=== PATIENT | male | born 1945 | race Two or more races ===

== ENCOUNTER 2017-10-17 12:56 | Observation (INO) | payer MEDICARE ==
--- OUTSIDE RECORDS SUMMARY | 2017-10-17 13:00 | XMS REPORT ---
:1945 External Reference #:[id number] Author Organization [facility] Address [address] [address] Phone [phone] Care Team Providers Name Role Phone Radha Pike MD Primary Care Physician Unavailable Payers Type Date Identification Numbers Payment Subscriber Provider Health Maintenance Effective: Policy Number: Medicare Blue Vern Castellon (O) 09/24/2016 [id number] o Group Number: [id number] [address] [address] PayID: [id number] MIRELLA Sky [id number] Medigap Part B Expires: 10/24/2013 Policy Number: [id number] Medicare Vern Lerner PayID: [id number] [address] [place] [address] Problems Date Description Provider Status Onset: 02/19/2009 Low back pain Charan Byrne M.D. Active Onset: 02/19/2009 Neck pain Charan Byrne M.D. Active Onset: 02/19/2009 Idiopathic peripheral neuropathy Charan Byrne M.D. Active Onset: 03/09/2009 Mononeuritis of lower limb Charan Byrne M.D. 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 Active Onset: 09/30/2014 Bipolar disorder Ramon Motta M.D. Active Onset: 02/11/2015 Hypersomnia with sleep apnea Jay Nathan M.D. Active Family History Date Family Member(s) Problem(s) Comments General MGM of dementia;MGF mental illness, of liver failure General PGF in 60's heart failure;PGM in 80's Onset: (age 31 General niece with thyroid cancer Years) : (age 90 Father due to Dementia Years) Father CHF Father Alzheimer's Disease at age 90 Mother 93 as of 09/29/2014 Mother CAD Mother Macular degeneration Mother Congestive Heart Failure Living at age 95 (CHF) Siblings 3 Siblings Brothers older w/thryroid cancer;younger mental issues Second Brother Celiac Disease Social History Type Date Description Comments Marital Status Single 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[employer] Cigarette Use Light tobacco smoker (10 or 4 ppd for about 10 years, fewer cigarettes/day) then less, current 5-10 cig/day (>50years) ETOH Use Drinks Alcoholic Beverages Occasionally Smoking Light tobacco smoker (10 or fewer cigarettes/day) Recreational Drug Use Former Drug User Marijuana, LSD Amphetamine x 5-10 between the age 20-30 years Daily Caffeine Consumes on average 5-10 cups of regular coffee per day Exercise Type/Frequency Does not exercise Allergies, Adverse Reactions, Alerts Date Description Reaction Status Severity Comments 03/14/2013 Lamotrigine active Medications Medication Date Status Form Strength Qnty SIG Indications Ordering Provider Atorvastatin 02/08/ Active Tablets 10mg 90tabs 1 by mouth Radha Calcium 2015 every day Jose Pike Elbow 11/09/ Active Misc 1units with elbow M70.21 [place] Support/Elasti 2015 protective BRITTA Nguyen c/Firm/Large padding. Aspirin Ec / Active Tablets DR 325mg 1 po qd Unknown 0000 Multi Vitamin / Active Tablets 1 po qd Unknown Mens 0000 Trazodone HCL / Active Tablets 100mg 15tabs 1/2 tablet Radha 0000 by mouth Shahzad, every night MShelleyDShelley at bedtime Areds 2 / Active 2 daily Unknown 0000 Nac / Active Capsules 600mg 1 tab po qd Unknown 0000 Keflex 05/18/ Hx Capsules 500mg 21caps 1 by mouth L02.224 [place] 2015 - three times BRITTA Nguyen 05/24/ a day for 2015 7days Vitamin C 02/10/ Hx 1 by mouth Unknown 2014 - every day 2014 Fish Oil 02/10/ Hx Capsules 1 by mouth Unknown 2014 - every day 2014 Vitamin D3 02/10/ Hx 1 every day Unknown 2014 - by mouth 2015 Propranolol 03/14/ Hx Tablets 10mg 60tabs 1 tablet by Jenifer SHEPPARD 2012 - mouth 1-2 [place], 09/28/ times per M.D. 2014 day Paroxetine HCL /00/ Hx Tablets 20mg 1 po qhs Unknown 0000 - 2014 Macdona 00/00/ Hx Capsules 300mg 1 tab po in Unknown Carbonate 0000 - moring/2 at 09/28/ bedtime 2014 Trazodone HCL 00/00/ Hx Tablets 100mg 1 tablet Unknown 0000 - at bedtime 2015 Morenci-3 00/00/ Hx Capsules 1000mg 1 po qd. Unknown 0000 - 2015 Vitamin B6 00/00/ Hx Tablets 250mg Unknown 0000 - 2014 Lutein Vision /00/ Hx Capsules 2 by mouth Unknown Blend 0000 - twice a day 2015 Harvoni 00/00/ Hx Tablets 90-400mg 1 by mouth Unknown 0000 - every day 2015 Latuda 00/00/ Hx Tablets 30mg 1 by mouth Unknown 0000 - every day 2015 Preservision 00/00/ Hx Tablets 1 capsule Unknown Areds 0000 - twice a day 05/13/ w/food 2015 Latuda 00/00/ Hx Tablets 20mg 1 po qd Unknown 0000 - 2016 Macdona 00/00/ Hx Capsules 300mg 2 caps by Unknown Carbonate 0000 - mouth @ 05/11/ bedtime 2015 Vitamin D-3 /00/ Hx Capsules 2000Unit 1 by mouth Unknown 0000 - every day 2016 Zinc 00/00/ Hx Tablets 22mg po qd Unknown Picolinate 0000 - 2016 Vitamin B12 00/00/ Hx Tablets ER 1000mcg 2 by mouth Unknown 0000 - every day 2016 Nac 600 /00/ Hx Capsules 600mg 1 po qd Unknown 0000 - 2016 Immunizations CPT Code Status Date Vaccine Reaction Lot # [id number] Given 02/16/2017 Pneumonia Vaccine no immediate noted. [id number] Given 07/09/2015 Fluvirin Im 3Yrs And Older Q2037 Given 02/11/2015 Fluvirin Im 3Yrs And Older Vital Signs Date Vital Result Comment 10/17/2017 Height 70.5 inches 5'10.50" Weight 257.00 lb Heart Rate 66 /min BP Systolic Sitting 118 mmHg BP Diastolic Sitting 72 mmHg Respiratory Rate 16 /min BMI (Body Mass Index) 36.4 kg/m2 10/15/2017 Height 61 inches 5'1" Weight 261.50 lb Heart Rate 61 /min BP Systolic 110 mmHg BP Diastolic 64 mmHg Body Temperature 97.2 F O2 % BldC Oximetry 96 % BMI (Body Mass Index) 49.4 kg/m2 04/05/2017 Heart Rate 68 /min BP Systolic Sitting 128 mmHg BP Diastolic Sitting 62 mmHg O2 % BldC Oximetry 98 % 02/16/2017 Height 69 inches 5'9" Weight 252.00 lb Heart Rate 54 /min BP Systolic Sitting 122 mmHg BP Diastolic Sitting 72 mmHg Respiratory Rate 15 /min Body Temperature 98.0 F O2 % BldC Oximetry 98 % BMI (Body Mass Index) 37.2 kg/m2 01/30/2017 Weight 252.25 lb Heart Rate 62 /min BP Systolic Sitting 110 mmHg BP Diastolic Sitting 70 mmHg Respiratory Rate 16 /min Body Temperature 97.3 F O2 % BldC Oximetry 97 % 05/19/2016 Weight 230.75 lb Heart Rate 68 /min BP Systolic Sitting 131 mmHg BP Diastolic Sitting 78 mmHg O2 % BldC Oximetry 99 % 05/18/2016 Weight 231.00 lb Heart Rate 66 /min BP Systolic 120 mmHg BP Diastolic 70 mmHg Body Temperature 97.7 F O2 % BldC Oximetry 99 % 05/11/2016 Weight 230.00 lb Heart Rate 68 /min BP Systolic Sitting 128 mmHg BP Diastolic Sitting 82 mmHg Respiratory Rate 15 /min Body Temperature 97.8 F O2 % BldC Oximetry 98 % 02/08/2016 Height 69 inches 5'9" Weight 251.00 lb Heart Rate 54 /min BP Systolic Sitting 128 mmHg BP Diastolic Sitting 84 mmHg Respiratory Rate 15 /min O2 % BldC Oximetry 98 % BMI (Body Mass Index) 37.1 kg/m2 01/11/2016 Height 69 inches 5'9" Weight 259.00 lb Heart Rate 70 /min BP Systolic Sitting 110 mmHg BP Diastolic Sitting 78 mmHg Body Temperature 96.0 F BMI (Body Mass Index) 38.2 kg/m2 12/27/2015 Height 69 inches 5'9" Weight 265.00 lb Heart Rate 80 /min BP Systolic Sitting 118 mmHg BP Diastolic Sitting 78 mmHg Body Temperature 97.7 F Pain Level 6 feet O2 % BldC Oximetry 98 % BMI (Body Mass Index) 39.1 kg/m2 11/09/2015 Weight 270.75 lb Heart Rate 75 /min BP Systolic Sitting 122 mmHg BP Diastolic Sitting 80 mmHg Body Temperature 96.8 F O2 % BldC Oximetry 95 % 02/11/2015 Height 71 inches 5'11" Weight 270.38 lb Heart Rate 75 /min BP Systolic Sitting 118 mmHg BP Diastolic Sitting 68 mmHg Respiratory Rate 20 /min Body Temperature 97.4 F O2 % BldC Oximetry 98 % BMI (Body Mass Index) 37.7 kg/m2 Neck Circumference in inches 17.25 01/06/2015 Weight 267.00 lb Heart Rate 70 /min BP Systolic Sitting 106 mmHg BP Diastolic Sitting 62 mmHg Body Temperature 96.9 F 09/29/2014 Height 71 inches 5'11" Weight 254.25 lb Heart Rate 72 /min BP Systolic Sitting 127 mmHg BP Diastolic Sitting 72 mmHg Body Temperature 98.4 F O2 % BldC Oximetry 98 % BMI (Body Mass Index) 35.5 kg/m2 03/14/2013 Height 71 inches 5'11" Weight 270.00 lb Heart Rate 64 /min BP Systolic 120 mmHg BP Diastolic 82 mmHg Respiratory Rate 12 /min BMI (Body Mass Index) 37.7 kg/m2 03/09/2009 Weight 243.00 lb Heart Rate 56 /min BP Systolic Sitting 98 mmHg BP Diastolic Sitting 64 mmHg 02/19/2009 Height 70.50 inches 5'10.50" Weight 242.50 lb Heart Rate 69 /min BP Systolic Sitting 104 mmHg BP Diastolic Sitting 70 mmHg Body Temperature 97.9 F O2 % BldC Oximetry 98 % BMI (Body Mass Index) 34.3 kg/m2 Results Test Date Test Result H/L Range Note Laboratory test 04/24/2017 Blood Urea Nitrogen 18 mg/dL 6-24 finding BUN Creatinine 04/24/2017 Creatinine 1.11 mg/dL 0.67-1.17 Egfr Non- 65.5 >60 Egfr 84.2 >60 1 CBC Auto Diff 03/22/2017 White Blood Count 7.8 10^3/uL 3.5-10.8 Red Blood Count 4.76 10^6/uL 4.0-5.4 Hemoglobin 14.5 g/dL 14.0-18.0 Hematocrit 43 % 42-52 Mean Corpuscular Volume 91 fL 80-94 Mean Corpuscular Hemoglobin 30 pg 27-31 Mean Corpuscular HGB Conc 34 g/dL 31-36 Red Cell Distribution Width 14 % 10.5-15 Platelet Count 136 10^3/uL Low 150-450 Mean Platelet Volume 10 um3 7.4-10.4 Abs Neutrophils 3.3 10^3/uL 1.5-7.7 Abs Lymphocytes 3.4 10^3/uL 1.0-4.8 Abs Monocytes 0.8 10^3/uL 0-0.8 Abs Eosinophils 0.2 10^3/uL 0-0.6 Abs Basophils 0.1 10^3/uL 0-0.2 Abs Nucleated RBC 0 10^3/uL Granulocyte % 42.3 % 38-83 Lymphocyte % 43.3 % 25-47 Monocyte % 10.7 % High 1-9 Eosinophil % 2.4 % 0-6 Basophil % 1.3 % 0-2 Nucleated Red Blood Cells % 0 Comp Metabolic Panel 02/07/2017 Sodium 136 mmol/L 133-145 Potassium 4.4 mmol/L 3.5-5.0 Chloride 105 mmol/L 101-111 Co2 Carbon Dioxide 25 mmol/L 22-32 Anion Gap 6 mmol/L 2-11 Glucose 93 mg/dL 70-100 Blood Urea Nitrogen 18 mg/dL 6-24 Creatinine 1.01 mg/dL 0.67-1.17 BUN/Creatinine Ratio 17.8 8-20 Calcium 9.3 mg/dL 8.6-10.3 Total Protein 7.2 g/dL 6.4-8.9 Albumin 4.1 g/dL 3.2-5.2 Globulin 3.1 g/dL 2-4 Albumin/Globulin Ratio 1.3 1-3 Total Bilirubin 0.60 mg/dL 0.2-1.0 Alkaline Phosphatase 54 U/L 34-104 Alt 11 U/L 7-52 Ast 14 U/L 13-39 Egfr Non- 73.0 >60 Egfr 93.9 >60 2 CBC Auto Diff 02/07/2017 White Blood Count 6.3 10^3/uL 3.5-10.8 Red Blood Count 5.01 10^6/uL 4.0-5.4 Hemoglobin 14.7 g/dL 14.0-18.0 Hematocrit 44 % 42-52 Mean Corpuscular Volume 88 fL 80-94 Mean Corpuscular Hemoglobin 29 pg 27-31 Mean Corpuscular HGB Conc 33 g/dL 31-36 Red Cell Distribution Width 14 % 10.5-15 Platelet Count 138 10^3/uL Low 150-450 Mean Platelet Volume 10 um3 7.4-10.4 Abs Neutrophils 3.0 10^3/uL 1.5-7.7 Abs Lymphocytes 2.5 10^3/uL 1.0-4.8 Abs Monocytes 0.6 10^3/uL 0-0.8 Abs Eosinophils 0.2 10^3/uL 0-0.6 Abs Basophils 0.1 10^3/uL 0-0.2 Abs Nucleated RBC 0 10^3/uL Granulocyte % 47.3 % 38-83 Lymphocyte % 39.4 % 25-47 Monocyte % 9.0 % 1-9 Eosinophil % 3.1 % 0-6 Basophil % 1.2 % 0-2 Nucleated Red Blood Cells % 0.1 Comp Metabolic Panel 01/31/2017 Sodium 137 mmol/L 133-145 Potassium 4.2 mmol/L 3.5-5.0 Chloride 106 mmol/L 101-111 Co2 Carbon Dioxide 26 mmol/L 22-32 Anion Gap 5 mmol/L 2-11 Glucose 89 mg/dL 70-100 Blood Urea Nitrogen 24 mg/dL 6-24 Creatinine 0.95 mg/dL 0.67-1.17 BUN/Creatinine Ratio 25.3 High 8-20 Calcium 9.3 mg/dL 8.6-10.3 Total Protein 6.9 g/dL 6.4-8.9 Albumin 3.9 g/dL 3.2-5.2 Globulin 3.0 g/dL 2-4 Albumin/Globulin Ratio 1.3 1-3 Total Bilirubin 0.70 mg/dL 0.2-1.0 Alkaline Phosphatase 55 U/L 34-104 Alt 11 U/L 7-52 Ast 14 U/L 13-39 Egfr Non- 78.4 >60 Egfr 100.8 >60 3 CBC Auto Diff 01/31/2017 White Blood Count 7.6 10^3/uL 3.5-10.8 Red Blood Count 4.98 10^6/uL 4.0-5.4 Hemoglobin 14.5 g/dL 14.0-18.0 Hematocrit 44 % 42-52 Mean Corpuscular Volume 88 fL 80-94 Mean Corpuscular Hemoglobin 29 pg 27-31 Mean Corpuscular HGB Conc 33 g/dL 31-36 Red Cell Distribution Width 14 % 10.5-15 Platelet Count 135 10^3/uL Low 150-450 Mean Platelet Volume 10 um3 7.4-10.4 Abs Neutrophils 3.0 10^3/uL 1.5-7.7 Abs Lymphocytes 3.5 10^3/uL 1.0-4.8 Abs Monocytes 0.7 10^3/uL 0-0.8 Abs Eosinophils 0.2 10^3/uL 0-0.6 Abs Basophils 0.1 10^3/uL 0-0.2 Abs Nucleated RBC 0 10^3/uL Granulocyte % 39.6 % 38-83 Lymphocyte % 46.5 % 25-47 Monocyte % 9.8 % High 1-9 Eosinophil % 3.0 % 0-6 Basophil % 1.1 % 0-2 Nucleated Red Blood Cells % 0 Lipid Profile (Trig/Chol/HDL) 11/03/2016 Triglycerides 90 mg/dL 4, 5 Cholesterol 137 mg/dL 4, 6 HDL Cholesterol 33.2 mg/dL 4, 7 LDL Cholesterol 86 mg/dL 4, 8 Laboratory test finding 11/03/2016 Glucose 93 mg/dL 70-100 4, 9 Folic Acid (Folate) > 20.00 ng/mL >3.99 4, 10 Vitamin B12 233 pg/mL 180-914 4, 11 Vitamin D Total 25(Oh) 34.9 ng/mL 30-50 4, 12 Hemoglobin A1c (Glyco HGB) 5.4 % Less than 6.0 4, 13 Copper, Serum 1.09 g/mL 0.75-1.45 4, 14 Zinc Serum 0.72 g/mL 0.66-1.10 4, 15 Reference Lab Test See Comment 4, 16 Ceruloplasmin 24 mg/dL 18-36 4, 17 Istat BUN/Crea/Egfr/V Eastct 02/14/2016 Poc Bun Eastct 11 mg/dL 9-18 Poc Crea Eastct 1.0 mg/dL High 0.6-0.9 GFR Non- Ect 74.1 >60 GFR Eastpr 95.3 >60 18 Lipid Profile (Trig/Chol/HDL) 02/09/2016 Triglycerides 129 mg/dL 19 Cholesterol 176 mg/dL 20 HDL Cholesterol 24.4 mg/dL 21 LDL Cholesterol 126 mg/dL 22 Comp Metabolic Panel 12/29/2015 Sodium 135 mmol/L 133-145 Potassium 4.4 mmol/L 3.5-5.0 Chloride 103 mmol/L 101-111 Co2 Carbon Dioxide 25 mmol/L 22-32 Anion Gap 7 mmol/L 2-11 Glucose 88 mg/dL 70-100 Blood Urea Nitrogen 11 mg/dL 6-24 Creatinine 1.00 mg/dL 0.67-1.17 BUN/Creatinine Ratio 11.0 8-20 Calcium 9.7 mg/dL 8.6-10.3 Total Protein 7.4 g/dL 6.4-8.9 Albumin 4.0 g/dL 3.2-5.2 Globulin 3.4 g/dL 2-4 Albumin/Globulin Ratio 1.2 1-3 Total Bilirubin 0.80 mg/dL 0.2-1.0 Alkaline Phosphatase 54 U/L 34-104 Alt 15 U/L 7-52 Ast 18 U/L 13-39 Egfr Non- 74.1 >60 Egfr 95.3 >60 23 CBC Auto Diff 12/29/2015 White Blood Count 7.8 10^3/uL 3.5-10.8 Red Blood Count 5.03 10^6/uL 4.0-5.4 Hemoglobin 15.0 g/dL 14.0-18.0 Hematocrit 45 % 42-52 Mean Corpuscular Volume 90 fL 80-94 Mean Corpuscular Hemoglobin 30 pg 27-31 Mean Corpuscular HGB Conc 33 g/dL 31-36 Red Cell Distribution Width 14 % 10.5-15 Platelet Count 156 10^3/uL 150-450 Mean Platelet Volume 10 um3 7.4-10.4 Abs Neutrophils 4.1 10^3/uL 1.5-7.7 Abs Lymphocytes 2.7 10^3/uL 1.0-4.8 Abs Monocytes 0.8 10^3/uL 0-0.8 Abs Eosinophils 0.1 10^3/uL 0-0.6 Abs Basophils 0.1 10^3/uL 0-0.2 Abs Nucleated RBC 0 10^3/uL Granulocyte % 52.0 % 38-83 Lymphocyte % 34.8 % 25-47 Monocyte % 10.8 % High 1-9 Eosinophil % 1.5 % 0-6 Basophil % 0.9 % 0-2 Nucleated Red Blood Cells % 0 Laboratory test finding 12/29/2015 Afp Tumor Marker 3.1 ng/mL <6.0 24 Alpha 1 Antitrypsin A1a 151 mg/dL 100 - 190 25 Comp Metabolic Panel 01/07/2015 Sodium 135 mmol/L 133-145 Potassium 4.5 mmol/L 3.5-5.0 Chloride 105 mmol/L 101-111 Co2 Carbon Dioxide 27 mmol/L 22-32 Anion Gap 3 mmol/L 2-11 Glucose 110 mg/dL High 70-100 Blood Urea Nitrogen 18 mg/dL 6-24 Creatinine 0.85 mg/dL 0.67-1.17 BUN/Creatinine Ratio 21.2 High 8-20 Calcium 9.1 mg/dL 8.6-10.3 Total Protein 7.1 g/dL 6.4-8.9 Albumin 3.8 g/dL 3.2-5.2 Globulin 3.3 g/dL 2-4 Albumin/Globulin Ratio 1.2 1-3 Total Bilirubin 0.40 mg/dL 0.2-1.0 Alkaline Phosphatase 55 U/L 34-104 Alt 42 U/L 7-52 Ast 36 U/L 13-39 Egfr Non- 89.6 >60 Egfr 115.3 >60 26 Laboratory test finding 01/07/2015 B Type Natriuretic 71 pg/mL 27 Peptide CBC Auto Diff 01/07/2015 White Blood Count 6.8 10^3/uL 4.8-10.8 Red Blood Count 4.74 10^6/uL 4.0-5.4 Hemoglobin 13.9 g/dL Low 14.0-18.0 Hematocrit 42 % 42-52 Mean Corpuscular Volume 89 fL 80-94 Mean Corpuscular Hemoglobin 29 pg 27-31 Mean Corpuscular HGB Conc 33 g/dL 31-36 Red Cell Distribution Width 15 % 10.5-15 Platelet Count 154 10^3/uL 150-450 Mean Platelet Volume 10 um3 7.4-10.4 Abs Neutrophils 3.0 10^3/uL 1.5-7.7 Abs Lymphocytes 2.7 10^3/uL 1.0-4.8 Abs Monocytes 0.9 10^3/uL High 0-0.8 Abs Eosinophils 0.2 10^3/uL 0-0.6 Abs Basophils 0.1 10^3/uL 0-0.2 Abs Nucleated RBC 0 10^3/uL Granulocyte % 44.3 % 38-83 Lymphocyte % 39.2 % 25-47 Monocyte % 12.5 % High 1-9 Eosinophil % 2.7 % 0-6 Basophil % 1.3 % 0-2 Nucleated Red Blood Cells % 0 Urinalysis Profile 01/07/2015 Urine Color Yellow Urine Appearance Clear Urine Specific [place] 1.010 1.010-1.030 Urine pH 5.0 5-9 Urine Urobilinogen Negative Negative Urine Ketones Negative Negative Urine Protein Negative Negative Urine Leukocytes Negative Negative Urine Blood Negative Negative Urine Nitrite Negative Negative Urine Bilirubin Negative Negative Urine Glucose Negative Negative Laboratory test finding 01/07/2015 TSH (Thyroid Stimulating 0.95 IU/mL 0.34-5.60 Horm) Lyme Disease Serology Negative Negative 28 1 Because ethnic data is not always readily available, this report includes an eGFR for both -Americans and non- Americans. The National Kidney Disease Education Program (NKDEP) does not endorse the use of the MDRD equation for patients that are not between the ages of 18 and 70, are , have extremes of body size, muscle mass, or nutritional status, or are non- or non-. According to the National Kidney Foundation, irrespective of diagnosis, the stage of the disease is based on the level of kidney function: Stage Description GFR(mL/min/1.73 m(2)) 1 Kidney damage with normal or decreased GFR 90 2 Kidney damage with mild decrease in GFR 60-89 3 Moderate decrease in GFR 30-59 4 Severe decrease in GFR 15-29 5 Kidney failure <15 (or dialysis) 2 Because ethnic data is not always readily available, this report includes an eGFR for both -Americans and non- Americans. The National Kidney Disease Education Program (NKDEP) does not endorse the use of the MDRD equation for patients that are not between the ages of 18 and 70, are , have extremes of body size, muscle mass, or nutritional status, or are non- or non-. According to the National Kidney Foundation, irrespective of diagnosis, the stage of the disease is based on the level of kidney function: Stage Description GFR(mL/min/1.73 m(2)) 1 Kidney damage with normal or decreased GFR 90 2 Kidney damage with mild decrease in GFR 60-89 3 Moderate decrease in GFR 30-59 4 Severe decrease in GFR 15-29 5 Kidney failure <15 (or dialysis) 3 Because ethnic data is not always readily available, this report includes an eGFR for both -Americans and non- Americans. The National Kidney Disease Education Program (NKDEP) does not endorse the use of the MDRD equation for patients that are not between the ages of 18 and 70, are , have extremes of body size, muscle mass, or nutritional status, or are non- or non-. According to the National Kidney Foundation, irrespective of diagnosis, the stage of the disease is based on the level of kidney function: Stage Description GFR(mL/min/1.73 m(2)) 1 Kidney damage with normal or decreased GFR 90 2 Kidney damage with mild decrease in GFR 60-89 3 Moderate decrease in GFR 30-59 4 Severe decrease in GFR 15-29 5 Kidney failure <15 (or dialysis) 4 FASTING 5 Desirable <150 Borderline high 150-199 High 200-499 Very High >500 6 Desirable <200 Borderline high 200-239 High >239 7 Low <40 Desirable: 40-60 High: >60 8 Desirable: <100 mg/dL Near Optimal: 100-129 mg/dL Borderline High: 130-159 mg/dL High: 160-189 mg/dL Very High: >189 mg/dL 9 FASTING 10 FASTING 11 Normal Range 180 to 914 Indeterminate Range 145 to 180 Deficient Range <145 12 FASTING 13 Therapeutic target for the treatment of diabetes Mellitus patients is <7% HBA1C, and in selective patients <6.0%.Please refer to [place] [employer] Association Diabetic care guidelines for further information. 14 ADDITIONAL INFORMATION This test was developed and its performance characteristics determined by [facility] in a manner consistent with CLIA requirements. This test has not been cleared or approved by the U.S. Food and Drug Administration. Test Performed by: [facility] - [address] [address] General Freight Agent: Norris Marsh II, M.D., Ph.D. 15 ADDITIONAL INFORMATION This test was developed and its performance characteristics determined by [facility] in a manner consistent with CLIA requirements. This test has not been cleared or approved by the U.S. Food and Drug Administration. Test Performed by: [facility] - [address] [address] General Freight Agent: Norris Marsh II, M.D., Ph.D. 16 Test Result Flag Unit RefValue Histamine, Whole Blood 1226 nmol/L 180-1800 INTERPRETIVE INFORMATION: Histamine, Whole Blood Test developed and characteristics determined by [facility]. See Compliance Statement D: [facility] [employer]/ Performed by [facility], [address] [place] [id number] [email or web address] [employer], Wing Coy MD - Lab. Director Test Performed by: [facility] [address] [place] [id number] 17 Adults: Males: 18-36 mg/dL Females: 18-53 mg/dL Pediatrics: Males (mg/dL) Females (mg/dL) 0-30 Days 8-25 3-28 31 Days-11 Month 15-48 15-43 1-3 Years 25-56 29-54 4-6 Years 29-56 26-54 7-9 Years 25-52 23-48 10-12 Years 21-51 21-48 13-15 Years 20-50 21-46 16-18 Years 20-45 22-50 The pediatric ranges are derived from the following criteria: Sandy SJ, Ch[place] GRANT, Mae J et al Pediatric reference ranges for [id number] and ceruloplasmin. Clin. Chem 1997; 43:S1999 Pediatric Reference Ranges, 2nd., SF Sandyet al. editors. [employer], [place], [place] 1997. Test Performed at: [facility], [address] [place] [id number] B Cheri ADLER, FCAP Test Performed by: [employer] [facility] [place] [address] [place] [address] 18 Because ethnic data is not always readily available, this report includes an eGFR for both -Americans and non- Americans. The National Kidney Disease Education Program (NKDEP) does not endorse the use of the MDRD equation for patients that are not between the ages of 18 and 70, are , have extremes of body size, muscle mass, or nutritional status, or are non- or non-. According to the National Kidney Foundation, irrespective of diagnosis, the stage of the disease is based on the level of kidney function: Stage Description GFR(mL/min/1.73 m(2)) 1 Kidney damage with normal or decreased GFR 90 2 Kidney damage with mild decrease in GFR 60-89 3 Moderate decrease in GFR 30-59 4 Severe decrease in GFR 15-29 5 Kidney failure <15 (or dialysis) 19 Desirable <150 Borderline high 150-199 High 200-499 Very High >500 20 Desirable <200 Borderline high 200-239 High >239 21 Low <40 Desirable: 40-60 High: >60 22 Desirable: <100 mg/dL Near Optimal: 100-129 mg/dL Borderline High: 130-159 mg/dL High: 160-189 mg/dL Very High: >189 mg/dL 23 Because ethnic data is not always readily available, this report includes an eGFR for both -Americans and non- Americans. The National Kidney Disease Education Program (NKDEP) does not endorse the use of the MDRD equation for patients that are not between the ages of 18 and 70, are , have extremes of body size, muscle mass, or nutritional status, or are non- or non-. According to the National Kidney Foundation, irrespective of diagnosis, the stage of the disease is based on the level of kidney function: Stage Description GFR(mL/min/1.73 m(2)) 1 Kidney damage with normal or decreased GFR 90 2 Kidney damage with mild decrease in GFR 60-89 3 Moderate decrease in GFR 30-59 4 Severe decrease in GFR 15-29 5 Kidney failure <15 (or dialysis) 24 ADDITIONAL INFORMATION The testing method is an immunoenzymatic assay manufactured by [employer]. and performed on the [employer] DxI 800. Values obtained with different assay methods or kits may be different and cannot be used interchangeably. Test results cannot be interpreted as absolute evidence for the presence or absence of malignant disease. Alpha-Fetoprotein values are not interpretable in females for the investigation of malignant disease. Test Performed by: [place] [address] General Freight Agent: Norris Marsh II, M.D., Ph.D. 25 Test Performed by: [place] [address] General Freight Agent: Norris Marsh II, M.D., Ph.D. 26 Because ethnic data is not always readily available, this report includes an eGFR for both -Americans and non- Americans. The National Kidney Disease Education Program (NKDEP) does not endorse the use of the MDRD equation for patients that are not between the ages of 18 and 70, are , have extremes of body size, muscle mass, or nutritional status, or are non- or non-. According to the National Kidney Foundation, irrespective of diagnosis, the stage of the disease is based on the level of kidney function: Stage Description GFR(mL/min/1.73 m(2)) 1 Kidney damage with normal or decreased GFR 90 2 Kidney damage with mild decrease in GFR 60-89 3 Moderate decrease in GFR 30-59 4 Severe decrease in GFR 15-29 5 Kidney failure <15 (or dialysis) 27 >100 to <200 pg/mL: likely compensated congestive heart failure (CHF) 200 to 400 pg/mL: likely moderate CHF >400 pg/mL: likely moderate to severe CHF [place] [facility] 28 Serologic response to B. burgdorferi infection is not detected, but cannot rule out early infection during which low or undetectable antibody levels to B. burgdorferi may be present. If clinically indicated, a new serum specimen should be submitted in 7-14 days. Test Performed by: [place] [address] General Freight Agent: Norris Marsh II, M.D., Ph.D. Procedures Date CPT Code Description Status Comment 02/01/2017 69025 Dest Lesion Each Addl Lesion 2 Completed Through 14 Each 02/01/2017 38527 Destruction ALL Benign Or Completed Premalignant Lesion (Other Than [place] 02/03/2016 22411 Polysomnography Sleep Staging 4+ Completed Parameters 02/02/2016 57970 EKG, Interpretation Only Completed 06/24/2013 Colonoscopy Completed Normal - done at the [facility] 02/04/2013 88588 Nerve Conduction 07-08 Studies Completed Encounters Type Date Location Provider CPT E/M Dx Office Visit 04/05/2017 [facility] Radha Pike 79192 I71.2 7:40a - Effie Garcia D69.6 G47.9 M54.2 Office Visit 02/16/2017 4:00p [facility] Radha Pike 34929 Z00.00 - Effie Garcia R91.8 E78.5 D69.6 F33.9 Z23 Office Visit 02/01/2017 10:40a [facility] [place] [address] L82.1 D18.01 I83.12 I83.11 L57.0 Office Visit 01/30/2017 4:20p [facility] Radha Pike 98632 I73.9 - Effie Garcia R63.5 Office Visit 05/19/2016 1:40p [facility] [place] [address] R04.0 [facility] Office Visit 05/18/2016 9:00a [facility] [place] [address] L02.224 Medicine - Effie Office Visit 05/11/2016 1:00p [facility] Radha Pike 14056 E78.5 [facility] - Effie Garcia B18.2 K59.00 Office Visit 02/08/2016 1:00p [facility] Radha Pike 54775 E78.5 - Effie Garcia J44.9 G47.9 Office Visit 01/11/2016 9:50a [facility] Asmita Shaikh, 92143 R13.12 - Effie Garcia Z80.8 Office Visit 11/09/2015 8:40a [facility] [place] [address] M70.21 [place] D48.5 M79.671 M79.672 H54.2 M70.22 Office Visit 02/11/2015 8:15a [facility] Jay Nathan, 43435 780.53 [facility] Office Visit 01/06/2015 2:30p [facility] [place] [address] 782.3 [place] 780.59 780.79 Office Visit 03/14/2013 9:00a [facility] Jenifer Matthews, 24091 333.1 [facility] Plan of Care Future Appointment(s):10/18/2017 11:30 am - Im Nurse Holter Monitor at [facility]02/25/2018 10:40 am - Radha Pike M.D. at [facility] Medicine [facility]10/17/2017 - Scott Guevara M.D.G46.3 Brain stem stroke syndromeFollow up:direct admit to [facility]
[2017-10-17] MEDS ORDERED: Acetaminophen TAB* 325 MG PO PRN (13:15)
[2017-10-17] MEDS ORDERED: NS 0.9% 1000 ML* 1,000 ML IV ONE (13:15)
[2017-10-17] MEDS ORDERED: traZODone TAB* 50 MG TAB PO PRN (13:59)
[2017-10-17] MEDS: Aspirin Low Dose CHEW TAB* 81 MG PO SCH (14:02)
[2017-10-17] MEDS: Heparin VIAL(*) 5000 UNITS/ML VIAL (FIVE THOUSAND) SUBCUT SCH ×2 (15:01→20:59)
[2017-10-17] MEDS: Clopidogrel TAB* 75 MG PO SCH (15:01)
--- NOTE | 2017-10-17 16:39 | ECHO ---
Patient: SUZAN ARIAS [facility] Rec#: [id number] : 1945 Date: 10/17/2017 Age: 72y Height: 177.8 cm / 70.0 in Weight: 118.4 kg / 261.0 lbs Sex: M BSA: 2.34 Room#: [facility] Admit Date#: 10/17/2017 Type: Inpatient Referring: Johanne Sanz MD Reading: Reina Manning MD Filer Repairer: Raegan Zapien RN RDCS CC: Radha Pike MD Transthoracic Echocardiogram Indication: CVA BP: 134/71 HR: 63 Rhythm: NSR Findings History: Thoracic aortic ectasia, abdominal aorta and iliac artery stenting, venous bypass left leg, smoker, obesity, Hepatitis C Technical Comments: The study is technically limited due to patient body habitus. The study is technically limited due to the patient's smoking history. Left Ventricle: The left ventricular chamber size is normal. Mild to moderate concentric left ventricular hypertrophy is observed. Global left ventricular wall motion and contractility are within normal limits. Left ventricular systolic function is at the lower limits of normal. The estimated ejection fraction is 50-55%. Abnormal left ventricular diastolic filling is observed, consistent with impaired relaxation. Left Atrium: The left atrium is mildly dilated. Right Ventricle: The right ventricular cavity size is normal. The right ventricular global systolic function is low normal. Right Atrium: The right atrium is mild to moderately dilated. The bubble study is negative. A patent foramen ovale is not demonstrated with color Doppler and agitated contrast. Aortic Valve: The aortic valve is trileaflet. The aortic valve leaflets are mildly thickened. There is moderate thickening of the left coronary cusp. There is moderate thickening of the non coronary cusp. Systolic excursion of the non coronary cusp is reduced. Systolic excursion of the left coronary cusp is reduced. There is mild to moderate aortic regurgitation. There is mild aortic stenosis. The mean gradient of the aortic valve is 7.6 mmHg. The aortic valve area, by VTI's, is calculated at 1.6 cm2. Mitral Valve: The mitral valve leaflets are mildly thickened. There is mild to moderate mitral regurgitation. The mitral regurgitant jet is laterally directed. There is no evidence of mitral stenosis. Tricuspid Valve: The tricuspid valve leaflets are normal. There is trace to mild tricuspid regurgitation. No pulmonary hypertension is noted. There is no tricuspid stenosis. Pulmonic Valve: The pulmonic valve appears normal. There is a trace pulmonic regurgitation. There is no pulmonic stenosis. Pericardium: There is no significant pericardial effusion. A pericardial fat pad is visualized. Aorta: There is moderate dilatation of the ascending aorta. There is no dilatation of the aortic arch. There is mild dilatation of the aortic root. Pulmonary Artery: The main pulmonary artery appears normal. Venous: The inferior vena cava appears normal in size. There is a greater than 50% respiratory change in the inferior vena cava dimension. Contrast: Normal saline was used as contrast for the bubble study. Images 1 and 2. Conclusions Mild to moderate concentric left ventricular hypertrophy is observed. Global left ventricular wall motion and contractility are within normal limits. The estimated ejection fraction is 50-55%. Abnormal left ventricular diastolic filling is observed, consistent with impaired relaxation. Normal right ventricular systolic function. A patent foramen ovale is not demonstrated with color Doppler and agitated contrast. The aortic valve leaflets are mildly thickened. There is mild to moderate aortic regurgitation, reversal of flow seen in the descending aorta. There is mild aortic stenosis: mean gradient is 7.6 mmHg, NEHA (VTI) is 1.6 cm2. There is mild to moderate mitral regurgitation lateral jet. There is trace to mild tricuspid regurgitation. There is moderate dilatation of the ascending aorta: 4.4 cm. No prior echo to compare available. Measurements Name Value Normal Range RVDdMajor (2D) 3.5 cm (2.2 - 4.4) RAd ISD 4CH 5.9 cm (3.4 - 4.9) RA (A4C)W 4.2 cm (2.9 - 4.6) IVSd (2D) 1.4 cm (0.6 - 1) LVPWd (2D) 1.2 cm (0.6 - 1) LVIDd (2D) 4.4 cm (3.6 - 5.4) LVIDs (2D) 3.2 cm - LV FS (2D) 27 % (25 - 45) Aortic Annulus 1.9 cm (1.4 - 2.6) Ao root diameter (2D) 3.9 cm (2.1 - 3.5) Ascending Ao 4.4 cm (2.1 - 3.4) Aortic arch 3.1 cm (1.8 - 3.4) LA dimension (AP) 2D 3.7 cm (2.3 - 3.8) LAd ISD 4CH 5.5 cm (2.9 - 5.3) LA ISD 4CH W 4.6 cm (2.5 - 4.5) Name Value Normal Range LA ESV SP 4CH (A/L) 71 ml - LA ESV SP 2CH (A/L) 51 ml - LA ESV BP (A/L) 63 ml - LA ESV BP (A/L) index 27 ml/m2 - LA ESV SP 4CH (MOD) 68 ml - LA ESV SP 2CH (MOD) 47 ml - Name Value Normal Range MV E-wave Vmax 0.57 m/sec - MV deceleration time 301 msec - MV A-wave Vmax 0.88 m/sec - MV E:A ratio 0.65 ratio - LV septal e' Vmax 0.05 m/sec - LV lateral e' Vmax 0.07 m/sec - LV E:e' septal ratio 11.4 ratio - LV E:e' lateral ratio 8.1 ratio - Name Value Normal Range AV Vmax 1.7 m/sec - AV VTI 44 cm - AV peak gradient 11.3 mmHg - AV mean gradient 7.6 mmHg - LVOT diameter 2 cm - LVOT Vmax 1 m/sec - LVOT VTI 23 cm - LVOT peak gradient 4.1 mmHg - LVOT mean gradient 2.3 mmHg - DOI (VTI) 0.52 ratio - DOI (Vmax) 0.59 ratio - SV LVOT 72.2 ml - CO LVOT 4.5 l/min - Cardiac index 1.9 l/min/m2 - NEHA (continuity Vmax) 1.9 cm2 - NEHA (continuity VTI) 1.6 cm2 - JULISSA Vmax 0.81 m/sec - Name Value Normal Range TR Vmax 2.3 m/sec - TR peak gradient 21 mmHg - RAP 3 mmHg - RVSP 24 mmHg - IVC diameter 1.9 cm - Name Value Normal Range PV Vmax 0.77 m/sec -
--- NOTE | 2017-10-17 17:15 | RAD ---
Indication: Unsteady gait. Sagittal T1, T2, STIR, axial T2 and gradient echo images of the cervical spine were obtained. Degenerative changes of the atlantoaxial joint is noted. The vertebral bodies appear normal in height. No compression fracture is noted. At C2-C3 there is no disc protrusion noted. No central or foraminal stenosis is noted. At C3-C4 degenerative disc disease is noted. Spondylitic ridge with broad-based protrusion flattens the thecal sac. There is left uncovertebral joint hypertrophy with left foraminal stenosis. At C4-C5 no definite disc protrusion is noted although minimal spondylitic ridge is noted. Right uncovertebral joint hypertrophy narrows the right foramen. C5-C6 spondylitic ridge with broad-based procedure flattening the thecal sac and abuts the spinal cord. Bilateral uncovertebral hypertrophy narrows both foramen. Mild spinal stenosis is noted level. At C6-C7 and C7-T1 the disc space appears normal. IMPRESSION: Degenerative disc disease is noted at C3-C4, C4-C5 and C5-C6 with largest spondylitic ridge and broad-based protrusion at C5-C6 with mild spinal stenosis. There is suggestion of left foraminal stenosis at C3-C4. Suggestion of right foraminal stenosis at C4-C5.
[2017-10-17 17:18] LABS: ABS Basophils 0 10^3/ul (0-0.2); ABS Eosinophils 0.1 10^3/ul (0-0.6); ABS Lymphocytes 2.5 10^3/ul (1.0-4.8); ABS Monocytes 0.5 10^3/ul (0-0.8); ABS Neutrophils 3.4 10^3/ul (1.5-7.7); ABS Nucleated RBC 0 10^3/ul; Eosinophil % 1.9 % (0-6); Hematocrit 45 % (42-52); Lymphocyte % 38.7 % (25-47); Mean Corpuscular HGB Conc 34 g/dl (31-36); Mean Corpuscular Hemoglobin 30 pg (27-31); Mean Corpuscular Volume 88 fL (80-94); Mean Platelet Volume 10 um3 (7.4-10.4); Nucleated Red Blood Cells % 0.1; Platelet Count 167 10^3/ul (150-450); Red Cell Distribution Width 14 % (10.5-15); White Blood Count 6.5 10^3/ul (3.5-10.8)
--- NOTE | 2017-10-17 17:18 | RAD ---
Indication: Unsteady gait. Sagittal and axial T1, axial T2, FLAIR, diffusion and susceptibility weighted images of the brain were obtained. Ventricular structures are midline. No midline shift is noted. The extra-axial spaces are unremarkable. There is no evidence of intracranial mass or hemorrhage. No restriction of diffusion is noted. The FLAIR images demonstrates no definite vasogenic edema. The posterior fossa, brainstem and cerebellopontine angles are grossly unremarkable. The orbits are otherwise unremarkable. There is opacification of the maxillary sinuses worse on the right than on the left. Mastoid air cells are well aerated. IMPRESSION: Maxillary sinusitis. No evidence of acute infarct is noted. Atrophy is noted.
[2017-10-17 17:30] LABS: EGFR Non-African American 77.2 (>60)
--- NOTE | 2017-10-17 20:02 | HP ---
CC: Dr. Guevara; Dr. Pike * HISTORY AND PHYSICAL: DATE OF ADMISSION: 10/17/17 PRIMARY CARE PROVIDER: Dr. Pike. NEUROLOGIST: Dr. Guevara. CHIEF COMPLAINT: Unsteady gait. HISTORY OF PRESENT ILLNESS: Vern Lerner is a 72-year-old male with history of dyslipidemia, peripheral arterial disease, bipolar disease and obstructive sleep apnea, who presented to Dr. Guevara's office after referral from Dr. Pike for unsteady gait. The patient stated that 3 days ago, he woke up and he basically fell down the moment he started to try to stand up from bed. He stated that he felt that everything was weak. He stated that slowly he got himself back into bed and over the course of the day, he got stronger to the point that he was able to ambulate and hold on to smith for the past couple of days and today, his gait was good enough that he actually is just a little bit unsteady, but ambulated without support. He went to see Dr. Guevara after he discussed with Dr. Pike's office the problem. Dr. Guevara send the patient for direct admission with a diagnosis of possible CVA. PAST MEDICAL HISTORY: 1. History of COPD, not on oxygen. 2. History of peripheral arterial disease, status post abdominal aortic aneurysm stenting and aortoiliac grafts bilaterally in 2017. 3. History of hepatitis C, status post treatment. 4. 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 5. History of bipolar disease. 6. History of dyslipidemia. 7. History of 1 episode of atrial flutter during his liver biopsy in 2012, asymptomatic and resolved. 8. History of transient thrombocytopenia that resolved after his hepatitis C treatment. MEDICATIONS: Include: 1. Lipitor 10 mg daily. 2. Aspirin 325 mg daily. 3. Trazodone 50 mg q.h.s. 4. Acetylcysteine 600 mg daily. The patient stated that he was recommended an acetylcysteine by his psychiatrist. ALLERGIES: LAMOTRIGINE. FAMILY HISTORY: Positive for father with CHF and Alzheimer disease who at the age of 96 and mother who is living at the age of 95 with history of congestive heart failure. 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 He lives in [facility], he has been living there for the past 1 year. He is retired and as his surrogate, he names his brother, Keesha Lerner , in [place], [place]. The patient smokes 10 cigarettes a day and started smoking when he was a teenager. He denies any drug use. He drinks alcoholic beverages occasionally. REVIEW OF SYSTEMS: Please see history of present illness. The remaining 12 systems were reviewed with the patient and were otherwise negative. PHYSICAL EXAMINATION GENERAL: This is a very pleasant 72-year-old male, who is in no acute distress. Alert, awake, and oriented x3. VITAL SIGNS: Blood pressure 142/75, heart rate of 77 and regular, respiratory rate 18, oxygen saturation 97% on room air, temperature 97.5. HEENT: Head: Atraumatic, normocephalic. Eyes: Pupils are equal, round, and reactive to light and accommodation. Oropharynx clear. Mucosa moist. NECK: Supple. No JVD. No bruits bilaterally. RESPIRATORY: Clear to auscultation bilaterally. CARDIOVASCULAR: Regular rate and rhythm. No murmur. ABDOMEN: Soft and nontender. Bowel sounds are present in all 4 quadrants. EXTREMITIES: There is no edema. Pulses are +2 bilaterally. No clubbing, cyanosis. NEURO EVALUATION: Speech clear. Cranial nerves II through XII grossly intact. Motor strength is 5/5 bilaterally. The patient's [id number] is not dysmetric and his wzby-xy-dthe is not dysmetric. The patient's gait is steady, slightly wider than expected. The patient cannot perform tandem walk. The patient has left- sided facial droop that is mild and he is not aware if he had that in the past. PSYCHIATRIC EVALUATION: Oriented x3 with no evidence of anxiety or depression. SKIN: On evaluation of the skin, no ecchymotic areas or rashes noted. ASSESSMENT AND PLAN: 1. Mr. Lerner is a 72-year-old male, a direct admission from Dr. Guevara's office with working diagnosis of likely ischemic cerebrovascular accident. The patient is going to be admitted to telemetry monitored bed. So far, the patient 's lab work is currently pending. He is going to have MRI of the head and neck obtained. Neuro checks are going to be performed every [address] Cruz will see the patient in evaluation. I will add Plavix to his aspirin treatment on a daily basis. I will also ask physical therapy and occupational therapy to see the patient for evaluation. The patient does not have any problems with swallowing and was evaluated by the bedside today. 2. In regards to the patient's dyslipidemia, Lipitor is going to be continued and fasting lipid profile is going to be obtained. 3. In regards to the patient's tobacco use, the patient smokes 10 cigarettes a day. He is not interested in tobacco replacement therapy when in the hospital. He was counseled to quit, so far not interested. He states that his mother, who is a long-term smoker is 96-year-old and she feels great and he thinks that he is going to have "her genes." 4. For DVT prophylaxis, the patient is at moderate risk and heparin subcutaneously is going to be ordered. TIME SPENT: Approximately 65 minutes was spent on admission of this patient, more than half of that time was spent [id number] with the patient doing the interview and physical exam. [id number]/[facility] #: [id number] OMAIRA
--- NOTE | 2017-10-18 00:04 | CONS ---
CC: Dr. Sanz * NEUROLOGY CONSULTATION: DATE OF CONSULT: 10/17/17 PATIENT OF: Dr. Pike and Dr. Guevara. HISTORY OF PRESENT ILLNESS: This is a 72-year-old man who has known vascular disease and on Sunday when he woke up, his both legs were weak. He had to pull himself up to stand and support his weight with his arms. His legs seemed weak at the time, but he has had over the course of a few days had significant improvement, although he still feels like his legs are off balance. He has no symptoms in his arms. He has had some chronic double vision, which is unchanged. He has had no headache. He has had no new numbness or bowel or bladder problems. He has a feeling of dizziness, but no room spinning. He has some numbness in his left foot that is old and related to vascular procedures years ago. He has had prism glasses for his sudden onset of double vision that he had 6 years ago. He has had some chronic neck pain worse since bumping his head 6 months ago and the night before he had the leg weakness. He noted that he slept on his pillow funny and he had some neck pain. He had some nausea in the past couple of days' time but no vomiting. He is on aspirin at baseline. 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 He has had past history of thrombocytopenia. PAST SURGICAL HISTORY: He has had stents placed in both iliac arteries in 2005 , bypass on his left leg in 1989. He had an aortic aneurysm repair in 2005. MEDICATIONS: On admission include: 1. Aspirin 325 a day. 2. Trazodone 100 mg half a tab at time. 3. AREDS 2 two daily. 4. Mag 600 one tablet daily. 5. Atorvastatin 10 mg a day. ALLERGIES: He is allergic to LAMOTRIGINE. FAMILY HISTORY: His grandmother of dementia. Father had Alzheimer's, dying at 90. Mom has congestive heart failure. SOCIAL HISTORY: He smokes less than 10 cigarettes a day. He drinks alcohol on occasion. He is a former drug user between age 21 and 31. REVIEW OF SYSTEMS: Negative in all 14 spheres other than the HPI. PHYSICAL EXAM: There are no vital signs on his chart today, but today in the office he had a blood pressure of 118/72, pulse 66, weight 257, respirations 16. He has had no reported fever. On exam, he was alert and oriented, but normal speech and comprehension. Cranial nerves II through XII were abnormal for right exotropia. Discs were intact. Motor exam revealed normal tone and strength in his arms and legs. He had slightly unsteady gait and he tended to lock his right knee when he walks and there was a mild asymmetry to his gait. Romberg is slightly unsteady, but did not fall. He had trace weakness in the left dorsiflexion by the way. Reflexes were trace to 1. Toes were downgoing. Sensation is decreased in his left foot to touch. Chest: Clear. Cardiovascular: Regular rate and rhythm. Abdomen is soft with positive bowel sounds. DIAGNOSTIC STUDIES/LAB DATA: His CT scan done on the showed no acute intracranial pathology. He has had no laboratories done yet. IMPRESSION AND PLAN: It was discussed with the patient and Dr. Sanz that Dr. Guevara is recently concerned about a cerebellar stroke given the acute onset and the improvement in this patient with known vascular disease and this is clearly a possibility. The story is not classic and that he does not have any hemiataxia, has no past pointing or clumsiness in either arm and this seems to be just bilateral leg. Instead of an event in his cerebellum, it is possible that this could be an acute cautery-like state and with improvement. The possibilities that could do this would be, he could have cord disease in his neck from central stenosis possibly from a disk disease and he could have acutely slept with his head in a funny position, affected his spinal cord and now is improving, but he might be at risk for further myelopathy. I am therefore adding an MRI of a C-spine to the MRI scan of his brain. The other possibility which is conceivable since he has had aortic surgery in the past. He could have a stroke in his spinal cord and this may be difficult to prove and for now we would not and I defer to Dr. Sanz if we need to do any visualization of his aorta to see if there is clot there. I think that this is less likely of these possibilities. Dr. Sanz is going to change his MRAs to CTAs, so that we can get the MRI scans of his brain and C-spine in a timely way and also visualize his arteries to his brain and neck. Once we do these studies , we will proceed further. He is going continued to be on the aspirin for now and he is having an echo and he will have cholesterol checked. Thanks for sharing his case. [id number]/[facility] #: [id number] OMAIRA
[2017-10-18] MEDS: Heparin VIAL(*) 5000 UNITS/ML VIAL (FIVE THOUSAND) SUBCUT SCH ×2 (05:46→13:56)
[2017-10-18] MEDS ORDERED: Iohexol 350* (CONTRAST) 500 ML MDV IV ONE (07:58)
[2017-10-18] MEDS ORDERED: Acetylcysteine CAP (RENAL)* 600 MG PO SCH (09:00)
[2017-10-18] MEDS ORDERED: Atorvastatin* 10 MG TAB PO SCH (09:00)
[2017-10-18] MEDS: Clopidogrel TAB* 75 MG PO SCH (09:03)
[2017-10-18] MEDS: Aspirin Low Dose CHEW TAB* 81 MG PO SCH (09:03)
--- NOTE | 2017-10-18 10:27 | RAD ---
HISTORY: Stroke, aortic stenosis COMPARISONS: April 26, 2017 TECHNIQUE: Multiple contiguous axial CT scans of the chest were obtained after the administration of nonionic intravenous contrast, timed to the systemic arterial phase of contrast enhancement.. Volumetric reconstructions of the ureter also sedated for review. Coronal and sagittal multiplanar reformations are also submitted for review. FINDINGS: NECK AND THYROID: The lower neck and thyroid are unremarkable. CHEST WALL: There is no lower cervical, axillary, or supraclavicular lymphadenopathy by size criteria. HEART AND PERICARDIUM: Coronary calcifications are noted. AORTA AND PULMONARY VASCULATURE: There is dilatation of the ascending thoracic aorta up to 4.5 x 4.4 cm in diameter. There is no dissection flap. This is stable. MEDIASTINUM: There is no mediastinal lymphadenopathy by size criteria. AARTI: There is no hilar lymphadenopathy by size criteria. AIRWAY AND ESOPHAGUS: The airway is unremarkable, without endobronchial filling defect. The esophagus is grossly normal. LUNG PARENCHYMA: The lungs are clear. PLEURA: No pleural abnormalities are noted. UPPER ABDOMEN: The upper abdomen is unremarkable. BONES AND SOFT TISSUES: Degenerative changes are noted of the spine. OTHER: None. IMPRESSION: STABLE DILATATION OF THE ASCENDING THORACIC AORTA.
--- NOTE | 2017-10-18 10:32 | RAD ---
INDICATION: Unsteady gait. Assess for carotid stenosis. Peripheral vascular disease. COMPARISON: October 17, 2017 MRI brain. TECHNIQUE: Multidetector CT images were obtained from the aortic arch to the skull base with 80 mL Omnipaque 350 IV contrast. Arterial phase of enhancement. Multiplanar reformation including maximum intensity projection. 3-D arterial volume rendering. Stenosis estimations based on denominator of distal internal carotid diameter. NECK ANGIOGRAM REPORT: Variant direct origin of the LEFT vertebral artery from the aortic arch between the LEFT common carotid artery and the LEFT subclavian. Small focus of calcific plaque at the origin of the LEFT vertebral artery from the aortic arch with assessment for stenosis precluded by small size of the artery. Negative for atherosclerotic plaque at the RIGHT common or extracranial internal carotid arteries. Negative for RIGHT subclavian stenosis. Minimal calcific plaque at the LEFT carotid bulb without resulting stenosis. Mild calcific and noncalcific plaque at the distal LEFT internal carotid artery just proximal to the carotid canal resulting in approximate 30% stenosis. Negative for LEFT subclavian artery stenosis. Calcific and noncalcific plaque at the proximal segment of the RIGHT vertebral artery with up to 70% stenosis resulting. While the RIGHT vertebral artery is dominant both vertebral arteries contribute to the basilar artery. There is calcific and noncalcific plaque at the intracranial internal carotid arteries less than 50% stenosis resulting. The [place] is included on the axial source images. No abnormality of the M1 or M2 middle cerebral arteries or A1 or A2 anterior cerebral arteries evident. Small patent anterior communicating artery. Patent RIGHT posterior cerebral artery is supplied primarily by the anterior circulation via a dominant RIGHT posterior communicating artery. No definitive RIGHT posterior cerebral artery P1 segment evident. Patent LEFT posterior cerebral artery is supplied primarily by the posterior circulation with normal variant hypoplastic LEFT posterior cerebral artery. Unremarkable cerebellar artery origins and basilar artery. IMPRESSION: 1. No evidence for hemodynamic significant carotid stenosis. 2. Variant direct origin of the LEFT vertebral artery from the aortic arch between the LEFT common carotid artery and the LEFT subclavian. Small focus of calcific plaque at the origin of the LEFT vertebral artery from the aortic arch with assessment for stenosis precluded by small size of the artery. 3. Approximate 70% stenosis of the proximal segment of the RIGHT vertebral artery. 4. Normal variation at the [place] without evidence for hemodynamic significant stenosis or occlusion. CPT II: CPT II Codes: 3100F
[2017-10-18 13:52] VITALS: BP 101/66
--- NOTE | 2017-10-19 03:34 | DS ---
CC: Dr. Low; Dr. Guevara; Dr. Cruz; Dr. Pike * DISCHARGE SUMMARY: DATE OF ADMISSION: 10/17/17 DATE OF DISCHARGE: 10/18/17 PRIMARY CARE PROVIDER: Dr. Pike. DISCHARGE DIAGNOSIS: Episode of unsteady gait and bilateral leg weakness most likely related to cervical disk disease. SECONDARY DIAGNOSES: 1. History of chronic obstructive pulmonary disease, not on oxygen. 2. History of peripheral arterial disease, status post abdominal aortic aneurysm stenting and aortoiliac grafts bilaterally. 3. Hepatitis C, status post treatment. 4. 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 5. History of bipolar disease. 6. Dyslipidemia. 7. History of 1 episode of atrial flutter during liver biopsy in 2012. 8. History of transient thrombocytopenia that resolved after hepatitis C treatment. MEDICATIONS AT DISCHARGE: Include: 1. Lipitor 10 mg daily. 2. Aspirin 325 mg daily. 3. Trazodone 50 mg q.h.s. 4. Acetylcysteine 600 mg daily. LABORATORY DATA AND STUDIES PERFORMED DURING THE HOSPITAL STAY: Included the patient's triglycerides of 184, cholesterol 141, LDL 79, and HDL 25. TSH 1.4. Sodium 136, potassium 3.9, chloride 105, carbon dioxide 35, BUN 14, creatinine 0.96. Liver function tests were unremarkable. White blood cell count 6.5, hemoglobin 15.0, hematocrit [address] 167,000. [address] angiogram of the neck obtained on 10/18/17, impression: "No evidence of hemodynamically significant carotid stenosis. Variant direct origin of the left ventricular artery from the aortic arch between the left common carotid artery and the left subclavian. Small focus of calcific plaque at the origin of the left ventricular artery from the aortic arch with assessment for stenosis precluded by small size of the artery. Approximately 70% stenosis of the proximal segment of the right vertebral artery. Normal variation of the [place] without evidence of hemodynamic significant stenosis or occlusion." CT angiogram of the chest, impression: "Stable dilatation of the ascending thoracic aorta." Cervical spine MRI, impression: "Degenerative disk disease noted at C3-C4, C4- C5, and C5-C6 level with largest spondylotic ridge and broad based protrusion at C5-C6 with mild spinal stenosis. There is suggestion of the left foraminal stenosis at the C3-C4. Suggestion of right foraminal stenosis at C4-C5. Brain MRI, impression: "Maxillary sinusitis. No evidence of acute infarct is noted. Atrophy is noted." Transesophageal echocardiogram showed EF of 50% to 55%. The aortic valve area was calculated at 1.6 with [id number] aortic regurgitation and mild aortic stenosis. A patent foramen ovale was not demonstrated. There was mild- to-moderate concentric LVH. There was moderate aortic regurgitation. There was mild-to- moderate mitral regurgitation. There was moderate dilatation of the ascending aorta at 4.4 cm. CONSULTATIONS DURING THE HOSPITAL STAY: Included Dr. Cruz from Neurology. HOSPITALIZATION COURSE: Vern Lerner is a 72-year-old male who presented to the hospital 3 days after an onset for his leg becoming "rubbery" and a fall from bed. Initially, Dr. Guevara saw the patient in evaluation as outpatient and the suspicion was that the patient had an acute CVA since he had unsteady gait when he was evaluated by Dr. Guevara on the day of admission. The patient also was noted to have mild left-sided facial asymmetry and flattening of the left nasolabial fold. The patient was observed on telemetry monitored bed with studies mentioned as above, grossly negative apart from degenerative disease of his cervical spine. The patient was noted to be mildly hypotensive throughout his night stay and required a couple of fluid boluses with pressures in the 90s. Nevertheless, his orthostatics by the time of discharge were unremarkable. Dr. Cruz saw the patient in evaluation and thought that the patient may have transient compression of the C-spine from degenerative disk disease on the basis of the patient's MRI of the cervical spine. Dr. Cruz discussed the case with Dr. Low from Neurosurgery, who reviewed the MRI images and recommended for the patient to be evaluated in his office next week. Please note that on the day of discharge, the patient was very eager to go home and requested to be discharged several times during the last day. In fact, he was ready to sign against medical advice but after discussion with Dr. Cruz and Dr. Cruz's discussion with Dr. Low, it was decided that the patient is to go home with recommendation to follow up with Neurosurgery as above. The patient also is to return back to the emergency department if the bilateral leg weakness recurs or any other worrisome symptoms develop. The patient is also recommended to follow up with Dr. Guevara in approximately 1 to 2 weeks and his primary care provider in approximately 4 to 7 days. His medications on discharge are unchanged. PHYSICAL EXAMINATION AT THE TIME OF DISCHARGE: Unchanged from admission. The patient has a mildly unsteady gait, which most likely is chronic due to his peripheral neuropathy. The patient has flattening of the left-sided nasolabial fold, which is also likely chronic. Please note that this is a short summary of the patient's hospitalization. Please refer to further medical record for details. [id number]/[facility] #: [id number] [facility] [facility]
--- NOTE | 2017-10-19 04:16 | PN ---
NEUROLOGICAL FOLLOWUP: DATE OF FOLLOWUP: 10/18/17 PATIENT OF: Dr. Sanz, Dr. Guevara, Dr. Pike. HISTORY: Vern feels his walking is back to normal and has no new complaints. He has no numbness or weakness or balance problems. MEDICATIONS: Continue to be: 1. Trazodone at bedtime. 2. Plavix. 3. Aspirin. 4. Lipitor 10 mg. PHYSICAL EXAMINATION: He is afebrile, pulse 85, respirations 20, blood pressure 101/66, temperature 97.7. He is alert and oriented with normal speech and comprehension. Cranial nerves II through XII were intact except his old exotropia. Motor exam revealed normal tone a strength. His walking was minimally wide based, but he was steady on his feet. There was no locking of his knees and his gait appeared normal. Chest: Clear. Cardiovascular: Regular rate and rhythm. Abdomen is soft with positive bowel sounds. I reviewed the MRI scan of his brain and C-spine. His brain showed no acute stroke. He had some atrophy and maxillary sinusitis. His cervical spine I reviewed and I saw that there was a significant disk a C5-C6 with spinal stenosis at that point with some deformation of his cord. I showed the films themselves to the patient. He has also had a neck CTA, which showed some 70% stenosis of the right vertebral artery. No significant carotid stenosis. He had a chest and thorax CTA, which showed stable dilatation of the thoracic aorta. I discussed his case with Dr. Low, the neurosurgeon, and had him review the films. He thought that the C5-C6 disk was significant in that it deformed the cord. It could have caused his symptoms and he though he needed an operation as the patient is clinically stable and is able to walk with walking back to baseline. Dr. Low wanted to see him as an outpatient and will be seen in the next week and then schedule a surgery shortly after that. I have discussed this with Dr. Sanz and the patient and they are in agreement with this plan. Thank you for sharing his case. [id number]/[facility] #: [id number] [place]
== END 2017-10-18 17:00 | disposition home or self-care (01) ==
LOC: MEDTELE 12:56
PROVIDERS: ADMIT Internal Medicine; ATTEND Internal Medicine
DX: M62.81 Muscle weakness (generalized) (principal); R26.81 Unsteadiness on feet; Z87.09 Personal history of other diseases of the respiratory system; Z86.79 Personal history of other diseases of the circulatory system; B18.2 Chronic viral hepatitis C; Z86.59 Personal history of other mental and behavioral disorders; E78.5 Hyperlipidemia, unspecified; Z79.82 Long term (current) use of aspirin
CPT/HCPCS: 36415; 70498; 70551; 71275; 72141; 80053; 80061; 84443; 85025; 93005; 93306; A9270-GY; G0378; G8978-GP-CH; G8979-GP-CH; G8980-GP-CH; G8987-GO-CH; G8988-GO-CH; G8989-GO-CH; J1644; Q9967

== ENCOUNTER 2017-11-22 05:49 | Inpatient (IN) | payer MEDICARE ==
[~2017-11-22 05:49] MED LIST: Buffered Lidocaine 0.9% SYRIN* 5 ML/SYR SYRINGE INTRADERM ONE; Buffered Lidocaine 0.9% SYRIN* 5 ML/SYR SYRINGE ONE
--- OUTSIDE RECORDS SUMMARY | 2017-11-22 05:54 | XMS REPORT ---
:1945 External Reference #:[id number] Author Organization [facility] Address [address] [address] Phone [phone] Care Team Providers Name Role Phone Radha Pike MD Primary Care Physician Unavailable Payers Type Date Identification Numbers Payment Subscriber Provider Health Maintenance Effective: Policy Number: Medicare Blue Vern Castellon (O) 09/24/2016 [id number] o Group Number: [id number] [address] [address] PayID: [id number] MIRELLA Sky [id number] Medigap Part B Expires: 10/24/2013 Policy Number: [id number] Medicare Vern Lerner PayID: [id number] [address] [place] [address] Problems Date Description Provider Status Onset: 02/19/2009 [...] with sleep apnea Jay Nathan M.D. 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 Onset: 10/24/2017 Cervical spondylosis Mark Anthony Low MD Active Family History Date Family Member(s) Problem(s) [...] Status Single 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[employer] Cigarette Use Light tobacco smoker (10 or 4 ppd for about 10 years, fewer cigarettes/day) then less, current 5-10 cig/day (>50years) ETOH Use Drinks Alcoholic Beverages 2 drinks in 6 months Rarely Recreational Drug Use Former Drug User Marijuana, LSD Amphetamine x 5-10 between the age 20-30 years Smoking Patient is a current smoker, smokes every day Smoking Light tobacco smoker (10 or 3-5 per day fewer cigarettes/day) Recreational Drug Use Denies Drug Use Daily Caffeine Consumes on average 5-10 cups of regular coffee per day Exercise Type/Frequency Does not exercise Allergies, Adverse Reactions, Alerts Date Description Reaction Status Severity Comments 03/14/2013 Lamotrigine active Medications Medication Date Status Form Strength Qnty SIG Indications Ordering Provider Atorvastatin 02/08/ Active Tablets 10mg 90tabs 1 by mouth Radha Calcium 2015 every day Jose Pike Elbow 16/ Active Misc 1units with elbow M70.21 [place] Support/Elasti 2015 protective BRITTA Nguyen c/Firm/Large padding. Aspirin Ec / Active Tablets DR 325mg 1 po qd Unknown 0000 Multi Vitamin / Active Tablets 1 po qd Unknown Mens 0000 Trazodone HCL / Active Tablets 100mg 15tabs 1/2 tablet Radha 0000 by mouth Shahzad, every night M.DShelley at bedtime Areds 2 / Active 2 daily Unknown 0000 N-Acetyl / Active Capsules 600mg 1 tab po qd Unknown Cysteine 0000 Dulcoease / Active daily Unknown 100MG 0000 Dulcolax 11/02/ Hx Tablets 5mg Radha 2017 - Cotton, 11/08/ M.D. 2017 Keflex 05/18/ Hx Capsules 500mg 21caps 1 [...] by Jenifer SHEPPARD 2012 - mouth 1-2 Kaylaman, 09/28/ times per M.D. 2014 day Paroxetine HCL / Hx Tablets 20mg 1 po qhs Unknown 0000 - 2014 [place] /00/ Hx Capsules 300mg 1 tab po in Unknown Carbonate 0000 - moring/2 at 09/28/ bedtime 2014 Trazodone HCL / Hx Tablets 100mg 1 tablet Unknown 0000 - at bedtime 2015 [place]-3 / Hx Capsules 1000mg 1 po qd. Unknown 0000 - 2015 Vitamin B6 /00/ Hx Tablets 250mg Unknown 0000 - 2014 Lutein Vision /00/ Hx Capsules 2 by mouth Unknown Blend 0000 - twice a day 2015 Harvoni 00/00/ Hx Tablets 90-400mg 1 by mouth Unknown 0000 - every day 2015 Latuda /00/ Hx Tablets 30mg 1 by mouth Unknown 0000 - every day 2015 Preservision 00/00/ Hx Tablets 1 capsule Unknown Areds 0000 - twice a day 05/13/ w/food 2015 Latuda 00/00/ Hx Tablets 20mg 1 po qd Unknown 0000 - 2016 [place] /00/ Hx Capsules 300mg 2 caps by Unknown Carbonate 0000 - mouth @ 05/11/ bedtime 2015 Vitamin D-3 /00/ Hx Capsules 2000Unit 1 by mouth Unknown 0000 - every day 2016 Zinc 00/00/ Hx Tablets 22mg po qd Unknown Picolinate 0000 - 2016 Vitamin B12 / Hx Tablets ER 1000mcg 2 by mouth Unknown 0000 - every day 2016 Nac 600 / Hx Capsules 600mg 1 po qd Unknown - 2016 Lipitor / Hx Tablets 10mg 1 by mouth Unknown 0000 - every night 11/04/ at bedtime 2018 Immunizations CPT Code Status Date Vaccine Reaction Lot # [id number] Given 02/16/2017 Pneumonia Vaccine no immediate noted. [id number] Given 07/09/2015 Fluvirin Im 3Yrs And Older Q2037 Given 02/11/2015 Fluvirin Im 3Yrs And Older Vital Signs Date Vital Result Comment 11/09/2017 Height 69 inches 5'9" Weight 260.00 lb with out shoes Heart Rate 66 /min BP Systolic 110 mmHg Rue lg cuff BP Diastolic 70 mmHg Rue lg cuff BP Systolic Sitting 118 mmHg Lue lg cuff BP Diastolic Sitting 72 mmHg Lue lg cuff BP Systolic Standing 112 mmHg Lue lg cuff BP Diastolic Standing 70 mmHg Lue lg cuff Respiratory Rate 16 /min BMI (Body Mass Index) 38.4 kg/m2 11/02/2017 Weight 261.50 lb Heart Rate 76 /min BP Systolic Sitting 120 mmHg BP Diastolic Sitting 72 mmHg Body Temperature 97.3 F O2 % BldC Oximetry 95 % 10/30/2017 Height 70.5 inches 5'10.50" Weight 252.00 lb Heart Rate 72 /min BP Systolic Sitting 126 mmHg BP Diastolic Sitting 84 mmHg Pain Level 2 BMI (Body Mass Index) 35.6 kg/m2 10/26/2017 Height 70.5 inches 5'10.50" Weight 252.00 lb Heart Rate 63 /min BP Systolic 120 mmHg BP Diastolic 60 mmHg Body Temperature 96.7 F O2 % BldC Oximetry 98 % BMI (Body Mass Index) 35.6 kg/m2 10/24/2017 Height 70.5 inches 5'10.50" Weight 257.00 lb Heart Rate 77 /min BP Systolic Sitting 122 mmHg BP Diastolic Sitting 64 mmHg Pain Level 3 BMI (Body Mass Index) 36.4 kg/m2 10/17/2017 Height 70.5 inches 5'10.50" Weight 257.00 [...] 0-2 Nucleated Red Blood Cells % 0.1 CBC Auto Diff 01/31/2017 White Blood Count [...] Blood Cells % 0 Comp Metabolic Panel 01/31/2017 Sodium 137 mmol/L [...] Non- 78.4 >60 Egfr 100.8 >60 3 Lipid Profile (Trig/Chol/HDL) 11/03/2016 Triglycerides 90 mg/dL [...] 0.6-0.9 GFR Non- Ect 74.1 >60 GFR Eastct 95.3 >60 18 Lipid Profile (Trig/Chol/HDL) 02/09/2016 [...] Non- 74.1 >60 Egfr 95.3 >60 23 Laboratory test finding 12/29/2015 Afp Tumor Marker 3.1 ng/mL <6.0 24 Alpha 1 Antitrypsin A1a 151 mg/dL 100 - 190 25 CBC Auto Diff 12/29/2015 White Blood Count [...] Blood Cells % 0 Laboratory test finding 01/07/2015 B Type Natriuretic Peptide 71 pg/mL 26 Comp Metabolic Panel 01/07/2015 Sodium 135 mmol/L [...] Egfr Non- 89.6 >60 Egfr 115.3 >60 27 Laboratory test finding 01/07/2015 TSH (Thyroid Stimulating 0.95 IU/mL 0.34-5.60 Horm) Lyme Disease Serology Negative Negative 28 Urinalysis Profile 01/07/2015 Urine Color Yellow Urine Appearance Clear Urine Specific [place] 1.010 1.010-1.030 Urine pH 5.0 5-9 Urine Urobilinogen Negative Negative Urine Ketones Negative Negative Urine Protein Negative Negative Urine Leukocytes Negative Negative Urine Blood Negative Negative Urine Nitrite Negative Negative Urine Bilirubin Negative Negative Urine Glucose Negative Negative CBC Auto Diff 01/07/2015 White Blood Count [...] 0-2 Nucleated Red Blood Cells % 0 1 Because ethnic data is not always [...] and in selective patients <6.0%.Please refer to [place] [employer] Diabetic care guidelines for further information. 14 ADDITIONAL INFORMATION This test was developed and its performance characteristics determined by [facility] in a manner consistent with CLIA requirements. This test has not been cleared or approved by the U.S. Food and Drug Administration. Test Performed by: [facility] - [address] [address] Wind Site Manager: Norris Marsh II, M.D., Ph.D. 15 ADDITIONAL INFORMATION This test was developed and its performance characteristics determined by [facility] in a manner consistent with CLIA requirements. This test has not been cleared or approved by the U.S. Food and Drug Administration. Test Performed by: [facility] [place] [address] Wind Site Manager: Norris Marsh II, M.D., Ph.D. 16 Test Result Flag Unit RefValue Histamine, Whole Blood 1226 nmol/L 180-1800 INTERPRETIVE INFORMATION: Histamine, Whole Blood Test developed and characteristics determined by [facility]. See Compliance Statement D: [email or web address] Performed by [facility], [address] [place] [id number] [email or web address], Wing Coy MD - Lab. Director Test Performed by: [facility] [address] [place] [address] 17 Adults: Males: 18-36 mg/dL Females: 18-53 mg/dL Pediatrics: Males (mg/dL) Females (mg/dL) 0-30 Days 8-25 3-28 31 Days-11 Month 15-48 15-43 1-3 Years 25-56 29-54 4-6 Years 29-56 26-54 7-9 Years 25-52 23-48 10-12 Years 21-51 21-48 13-15 Years 20-50 21-46 16-18 Years 20-45 22-50 The pediatric ranges are derived from the following criteria: [place] S[place], [place] GRANT, Mae Perdomo et al Pediatric reference ranges for Gmpg-3-Xgemhcpsgzuhf and ceruloplasmin. Clin. Chem 1997; 43:S1999 Pediatric Reference Ranges, 2nd., SF Sandyet al. editors. [employer], [place], [place] 1997. Test Performed at: [facility], [address] [place] [address] B Cheri ADLER, FCAP Test Performed by: [facility]/[address] [address] [place] [address] 18 Because ethnic data is not always [...] method is an immunoenzymatic assay manufactured by [employer]. and performed on the [employer] DxI 800. Values obtained with different assay methods or kits may be different and cannot be used interchangeably. Test results cannot be interpreted as absolute evidence for the presence or absence of malignant disease. Alpha-Fetoprotein values are not interpretable in females for the investigation of malignant disease. Test Performed by: [place] [address] Wind Site Manager: Norris Marsh II, M.D., Ph.D. 25 Test Performed by: [place] [address] Wind Site Manager: Norris Marsh II, M.D., Ph.D. 26 >100 to <200 pg/mL: likely compensated congestive heart failure (CHF) 200 to 400 pg/mL: likely moderate CHF >400 pg/mL: likely moderate to severe CHF [place] [facility] 27 Because ethnic data is not always readily [...] 15-29 5 Kidney failure <15 (or dialysis) 28 Serologic response to B. burgdorferi infection is not detected, but cannot rule out early infection during which low or undetectable antibody levels to B. burgdorferi may be present. If clinically indicated, a new serum specimen should be submitted in 7-14 days. Test Performed by: [address] [address] Wind Site Manager: Norris Marsh II, M.D., Ph.D. Procedures Date CPT Code Description Status Comment 11/09/2017 23331 EKG Tracing & Interpretation Completed 10/17/2017 78503 ECHO Transthorasic Realtime 2D W Completed Doppler & Color Flow Hosp 02/01/2017 95839 Dest Lesion Each Addl Lesion 2 Completed Through 14 Each 02/01/2017 73388 Destruction ALL Benign Or Completed Premalignant Lesion (Other Than [place] 02/03/2016 98577 Polysomnography Sleep Staging 4+ Completed Parameters 02/02/2016 18154 EKG, Interpretation Only Completed 06/24/2013 Colonoscopy Completed [facility] 02/04[facility]2013 88135 Nerve Conduction 07-08 Studies Completed Encounters Type Date Location Provider CPT E/M Dx Office Visit 11/09/2017 [facility] [place] [address] Z01.810 1:00p [facility] R94.31 Z72.0 I71.2 I73.9 Office Visit 11/02/2017 2:40p [facility] Internal Radha Pike 75704 Z01.818 Elisha - Effie Garcia I71.2 G47.9 Office Visit 10/24/2017 4:00p [facility] Vassilios [address] M47.892 Of [facility] MD Devante M50.022 Office Visit 10/17/2017 2:46p [facility] Johanne Sanz 09227 R29.898 [facility] Jose I73.9 E78.5 Office Visit 10/15/2017 11:40a [facility] Internal Medicine Radha Pike 97092 I67.89 - Effie Garcia Office Visit 04/05/2017 7:40a [facility] Internal Medicine Radha Pike 98124 I71.2 - Effie Garcia D69.6 G47.9 M54.2 Office Visit 02/16/2017 4:00p [facility] Internal Medicine Radha Pike 09420 Z00.00 - Effie Garcia R91.8 E78.5 D69.6 F33.9 Z23 Office Visit 02/01/2017 10:40a [facility] [place] [address] L82.1 D18.01 I83.12 I83.11 L57.0 Office Visit 01/30/2017 4:20p [facility] Internal Medicine Radha Pike 73608 I73.9 - Effie Garcia R63.5 Office Visit 05/19/2016 1:40p [facility] [place] [address] R04.0 Medicine - Effie Office Visit 05/18/2016 9:00a [facility] [place] [address] L02.224 Medicine - Effie Office Visit 05/11/2016 1:00p [facility] Internal Radha Pike 32670 E78.5 Medicine Effie Garcia B18.2 K59.00 Office Visit 02/08/2016 1:00p [facility] Internal Medicine Radha Pike 97931 E78.5 - Effie Garcia J44.9 G47.9 Office Visit 01/11/2016 9:50a [facility] Internal Medicine Asmita Shaikh, 333[address] R13.12 - Effie Garcia Z80.8 Office Visit 11/09/2015 8:40a [facility] [place] [address] M70.21 [place] D48.5 M79.671 M79.672 H54.2 M70.22 Office Visit 02/11/2015 8:15a [facility] Jay Nathan, 13980 780.53 Services Of Abhishek Garcia Office Visit 01/06/2015 2:30p [facility] [place] [address] 782.3 [place] 780.59 780.79 Office Visit 03/14/2013 9:00a [facility] Jenifer Matthews, 88292 333.1 Services Of Abhishek Garcia Plan of Care Future Appointment(s):11/14/2017 10:15 am - Mauro Craven M.D. at [facility]11/22/2017 7:30 pm - Mark Anthony Low MD at [facility] Of [facility]11/30/2017 9:00 am - Mark Anthony Low MD at [facility] Of [facility]02/25/2018 10:40 am - Radha Pike M.D. at [facility] Internal Medicine - Uxbkgwmyj65/16/2018 - Kyle Ramachandran DO FACCZ01.810 Encounter for preprocedural cardiovascular examinationNew Orders:Stress Test, Exercise NuclearFollow up:PRNR94.31 Abnormal electrocardiogram [ECG] [EKG]Z72.0 Tobacco useI71.2 Thoracic aortic aneurysm, without xiluvcbX70.9 Peripheral vascular disease, unspecified
--- OUTSIDE RECORDS SUMMARY | 2017-11-22 05:55 | XMS REPORT ---
:1945 External Reference #:[id number] Author Organization [facility] Address [address] [address] Phone [phone] Care Team Providers Name Role Phone Radha Pike MD Primary Care Physician Unavailable Payers Type Date Identification Numbers Payment Subscriber Provider Health Maintenance Effective: Policy Number: Medicare Blue Vern Castellon (O) 09/24/2016 [id number] o Group Number: [id number] [address] [address] PayID: [id number] MIRELLA Sky [address] Medigap Part B Expires: 10/24/2013 Policy Number: [id number] Medicare Vern Lerner PayID: [id number] [address] [place] [address] Problems Date Description Provider Status Onset: 02/19/2009 [...] Status Single 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[employer] Cigarette Use Light tobacco smoker (10 or 4 ppd for about 10 years, fewer cigarettes/day) then less, current 5-10 cig/day (>50years) ETOH Use Drinks Alcoholic Beverages 2 drinks in 6 months Rarely Recreational Drug Use Former Drug User Marijuana, LSD Amphetamine x 5-10 between the age 20-30 years Smoking Patient is a current smoker, smokes every day Daily Caffeine Consumes on average 5-10 cups of regular coffee per day Exercise Type/Frequency Does not exercise Allergies, Adverse Reactions, Alerts Date Description Reaction Status Severity Comments 03/14/2013 Lamotrigine active Medications Medication Date Status Form Strength Qnty SIG Indications Ordering Provider Dulcolax 11/02/ Active Tablets DR 5mg Radha 2017 Jose Pike Atorvastatin 02/08/ Active Tablets 10mg 90tabs 1 [...] / Active 2 daily Unknown 0000 N-Acetyl 00/00/ Active Capsules 600mg 1 tab po qd Unknown Cysteine 0000 Keflex 05/18/ Hx Capsules 500mg 21caps [...] 1 po qhs Unknown 0000 - 2014 [place] 00/00/ Hx Capsules 300mg 1 tab po in Unknown Carbonate 0000 - moring/2 at 09/28/ bedtime 2014 Trazodone HCL 00/00/ Hx Tablets 100mg 1 tablet Unknown 0000 - at bedtime 2015 [place]yer-3 /00/ Hx Capsules 1000mg 1 po qd. Unknown 0000 - 2015 Vitamin B6 00/00/ Hx Tablets 250mg Unknown 0000 - 2014 Lutein Vision 00/00/ Hx Capsules 2 by mouth Unknown Blend 0000 - twice a day 2015 Harvoni 00/00/ Hx Tablets 90-400mg 1 by mouth Unknown 0000 - every day 2015 Latuda 00/00/ Hx Tablets 30mg 1 by mouth Unknown 0000 - every day 2015 Preservision 00/00/ Hx Tablets 1 capsule Unknown Areds 0000 - twice a day 05/13/ w/food 2016 Latuda 00/00/ Hx Tablets 20mg 1 po qd Unknown 0000 - 2016 [place] 00/00/ Hx Capsules 300mg 2 caps by Unknown Carbonate 0000 - mouth @ 05/11/ bedtime 2015 Vitamin D-3 00/00/ Hx Capsules 2000Unit 1 by mouth Unknown 0000 - every day 2016 Zinc 00/00/ Hx Tablets 22mg po qd Unknown Picolinate 0000 - 2016 Vitamin B12 00/00/ Hx Tablets ER 1000mcg 2 by mouth Unknown 0000 - every day 2016 Nac 600 00/00/ Hx Capsules 600mg 1 po qd Unknown 0000 - 2016 Immunizations CPT Code Status Date Vaccine Reaction Lot # [id number] Given 02/16/2017 Pneumonia Vaccine no immediate noted. [id number] Given 07/09/2015 Fluvirin Im 3Yrs And Older Q2037 Given 02/11/2015 Fluvirin Im 3Yrs And Older Vital Signs Date Vital Result Comment 11/02/2017 Weight 261.50 lb Heart Rate 76 [...] Test Date Test Result H/L Range Note Creatinine 04/24/2017 Creatinine 1.11 mg/dL 0.67-1.17 Egfr Non- 65.5 >60 Egfr 84.2 >60 1 Laboratory test finding 04/24/2017 Blood Urea Nitrogen BUN 18 mg/dL 6-24 CBC Auto Diff 03/22/2017 White Blood Count [...] mg/dL 21 LDL Cholesterol 126 mg/dL 22 CBC Auto Diff 12/29/2015 White Blood Count [...] Blood Cells % 0 Comp Metabolic Panel 12/29/2015 Sodium 135 mmol/L [...] A1a 151 mg/dL 100 - 190 25 Laboratory test finding 01/07/2015 TSH (Thyroid Stimulating 0.95 IU/mL 0.34-5.60 Horm) Lyme Disease Serology Negative Negative 26 Urinalysis Profile 01/07/2015 Urine Color Yellow Urine Appearance Clear Urine Specific [place] 1.010 1.010-1.030 Urine pH 5.0 5-9 Urine [...] 01/07/2015 B Type Natriuretic Peptide 71 pg/mL 27 Comp Metabolic Panel 01/07/2015 Sodium 135 mmol/L [...] Egfr Non- 89.6 >60 Egfr 115.3 >60 28 1 Because ethnic data is not [...] and in selective patients <6.0%.Please refer to [place] Diabetes Association Diabetic care guidelines for further information. 14 ADDITIONAL INFORMATION This test was developed and its performance characteristics determined by [facility] in a manner consistent with CLIA requirements. This test has not been cleared or approved by the U.S. Food and Drug Administration. Test Performed by: [facility] [place] [address] Ice Grinder: Norris Marsh II, M.D., Ph.D. 15 ADDITIONAL INFORMATION This test was developed and its performance characteristics determined by [facility] in a manner consistent with CLIA requirements. This test has not been cleared or approved by the U.S. Food and Drug Administration. Test Performed by: [facility] [place] [address] Ice Grinder: Norris Marsh II, M.D., Ph.D. 16 Test Result Flag Unit RefValue Histamine, Whole Blood 1226 nmol/L 180-1800 INTERPRETIVE INFORMATION: Histamine, Whole Blood Test developed and characteristics determined by [email or web address]. See Compliance Statement D: [employer]/ Performed by [email or web address], [address] [place] [address] [email or web address], Wing Coy MD - Lab. Director Test Performed by: [email or web address] [address] [place] [address] 17 Adults: Males: 18-36 mg/dL Females: 18-53 mg/dL Pediatrics: Males (mg/dL) Females (mg/dL) 0-30 Days 8-25 3-28 31 Days-11 Month 15-48 15-43 1-3 Years 25-56 29-54 4-6 Years 29-56 26-54 7-9 Years 25-52 23-48 10-12 Years 21-51 21-48 13-15 Years 20-50 21-46 16-18 Years 20-45 22-50 The pediatric ranges are derived from the following criteria: Sandy SJ, Chica JM, Mae J et al Pediatric reference ranges for Wylt-8-Jqljywrtiqqdo and ceruloplasmin. Clin. Chem 1997; 43:S1999 Pediatric Reference Ranges, 2nd., SF Sandyet al. editors. [employer] Press, [place], [place] 1997. Test Performed at: [facility], [address] [place] [address] B Cheri ADLER, FCAP Test Performed by: [facility] [address] [place] [address] 18 Because ethnic data is not always [...] method is an immunoenzymatic assay manufactured by [employer] and performed on the [employer] DxI 800. Values obtained with different assay methods or kits may be different and cannot be used interchangeably. Test results cannot be interpreted as absolute evidence for the presence or absence of malignant disease. Alpha-Fetoprotein values are not interpretable in females for the investigation of malignant disease. Test Performed by: [place] [address] Ice Grinder: Norris Marsh II, M.D., Ph.D. 25 Test Performed by: [place] [address] Ice Grinder: Norris Marsh II, M.D., Ph.D. 26 Serologic response to B. burgdorferi infection is not detected, but cannot rule out early infection during which low or undetectable antibody levels to B. burgdorferi may be present. If clinically indicated, a new serum specimen should be submitted in 7-14 days. Test Performed by: [place] [address] Ice Grinder: Norris Marsh II, M.D., Ph.D. 27 >100 to <200 pg/mL: likely compensated congestive heart failure (CHF) 200 to 400 pg/mL: likely moderate CHF >400 pg/mL: likely moderate to severe CHF [place] [facility] 28 Because ethnic data is not always readily [...] 15-29 5 Kidney failure <15 (or dialysis) Procedures Date CPT Code Description Status Comment 10/17/2017 33090 ECHO Transthorasic Realtime 2D W Completed Doppler & Color Flow Hosp 02/01/2017 68346 Dest Lesion Each Addl Lesion 2 Completed Through 14 Each 02/01/2017 20245 Destruction ALL Benign Or Completed Premalignant Lesion (Other Than [place] 02/03/2016 06420 Polysomnography Sleep Staging 4+ Completed Parameters 02/02/2016 58604 EKG, Interpretation Only Completed 06/24/2013 [facility] 02/04/2013 36911 Nerve Conduction -08 Studies Completed Encounters Type Date Location Provider CPT E/M Dx Office Visit 10/24/2017 Neurosurgery Services [facility] [address] M47.892 4:00p Of Abhishek Low MD M50.022 [facility] Visit 10/17[facility]2017 [facility] [address] R29.898 Assoc, Hospitalists Jose I73.9 E78.5 Office Visit 10/15/2017 11:40a [facility] Internal Medicine Radha Pike 20509 I67.89 - Effie Garcia Office Visit 04/05/2017 7:40a [facility] Internal Medicine Radha Pike 30678 I71.2 - Effie Garcia D69.6 G47.9 M54.2 Office Visit 02/16/2017 4:00p [facility] Internal Medicine Radha Pike 21523 Z00.00 - Effie Garcia R91.8 E78.5 D69.6 F33.9 Z23 Office Visit 02/01/2017 10:40a [facility] [place] [address] L82.1 D18.01 I83.12 I83.11 L57.0 Office Visit 01/30/2017 4:20p [facility] Internal Medicine Radha Pike 96899 I73.9 - Effie Garcia R63.5 Office Visit 05/19/2016 1:40p [facility] [place] [address] R04.0 Medicine - Effie Office Visit 05/18/2016 9:00a [facility] [place] [address] L02.224 Medicine - [place] Office Visit 05/11/2016 1:00p [facility] Internal Radha Pike 26853 E78.5 Medicine Effie Garcia B18.2 K59.00 Office Visit 02/08/2016 1:00p [facility] Internal Medicine Radha Pike 96592 E78.5 - Effie Garcia J44.9 G47.9 Office Visit 01/11/2016 9:50a [facility] Internal Medicine Asmita Shaikh, 63994 R13.12 - Effie Garcia Z80.8 Office Visit 11/09/2015 8:40a [facility] [place] [address] M70.21 Effie D48.5 M79.671 M79.672 H54.2 M70.22 Office Visit 02/11/2015 8:15a Pulmonology And Sleep Jay Nathan, 92179 780.53 Services Of [facility] Jose Office Visit 01/06/2015 2:30p [facility] [place] [address] 782.3 Effie 780.59 780.79 Office Visit 03/14/2013 9:00a [facility] Jenifer Matthews, 30861 333.1 Services Of Abhishek Garcia Plan of Care Future Appointment(s):11/22/2017 10:30 am - Mark Anthony Low MD at [facility]surgery [facility]11/30/2017 9:00 am - Mark Anthony Low MD at [facility]surgery [facility]02/25/2018 10:40 am - Radha Pike M.D. at [facility] Internal Medicine - Xkbbiwtrl26/09/2018 - Radha Pike M.D.Z01.818 Encounter for other preprocedural examinationComments:Stop the aspirin 10 days prior to surgeryStop all supplements including the NAC 1 week prior to surgeryFollow up:.2 Thoracic aortic aneurysm, without ruptureReferral: Kyle Ramachandran DO, FACC, Cardiovsclr YinauomY59.9 Sleep disorder, unspecifiedComments:I will be ordering a CPAP machine for use after the surgery when sleeping/napping on pain medicine
--- OUTSIDE RECORDS SUMMARY | 2017-11-22 05:55 | XMS REPORT ---
:1945 External Reference #:[id number] Author Organization [facility] Address [address] [address] Phone [phone] Care Team Providers Name Role Phone Radha Pike MD Primary Care Physician Unavailable Payers Type Date Identification Numbers Payment Subscriber Provider Health Maintenance Effective: Policy Number: Medicare Blue Vern Castellon (O) 09/24/2016 [id number] o Group Number: [id number] [address] [address] PayID: [id number] MIRELLA Sky [address] Medigap Part B Expires: 10/24/2013 Policy Number: [id number] Medicare Vern Lerner PayID: [id number] [address] [place] [address] Problems Date Description Provider Status Onset: 02/19/2009 [...] 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 Aspirin Ec / Active Tablets DR 325mg 1 po qd Unknown 0000 Multi Vitamin / Active Tablets 1 po qd Unknown Mens Trazodone HCL / Active Tablets 100mg 15tabs 1/2 tablet Radha 0000 by mouth Cotton, every night M.D. at bedtime Areds 2 00// Active 2 daily Unknown 0000 Nac / Active Capsules 600mg 1 tab po qd Unknown 0000 Keflex 05/18/ Hx Capsules 500mg 21caps 1 by mouth L02.224 [place] 2016 - three times Patrick, LINEN CONTROLLER 05/24/ a day for 2016 7days Vitamin C 02/10/ Hx 1 by mouth Unknown 2014 - every day 2014 Fish Oil 02/10/ Hx Capsules 1 by mouth Unknown 2014 - every day 2014 Vitamin D3 20/ Hx 1 every day Unknown 2014 - by mouth 2015 Propranolol 03/14/ Hx Tablets 10mg 60tabs 1 tablet by Jenifer SHEPPARD 2012 - mouth 1-2 Cassie, 09/28/ times per M.D. 2014 day Paroxetine HCL /00/ Hx Tablets 20mg 1 po qhs Unknown 0000 - 2014 [place] 00/00/ Hx Capsules 300mg 1 tab po in Unknown Carbonate 0000 - moring/2 at 09/28/ bedtime 2014 Trazodone HCL 00/00/ Hx Tablets 100mg 1 tablet Unknown 0000 - at bedtime 2015 Sebastian-3 00/00/ Hx Capsules 1000mg 1 po qd. [...] 1 po qd Unknown 0000 - 2016 [place] 00/00/ Hx Capsules 300mg 2 caps by [...] Code Status Date Vaccine Reaction Lot # [id number] Given 02/16/2017 Pneumonia Vaccine no immediate noted. [id number] Q2037 Given 07/09/2015 Fluvirin Im 3Yrs And Older Q2037 Given 02/11/2015 Fluvirin Im 3Yrs And Older Vital Signs Date Vital Result Comment 10/30/2017 Height 70.5 inches 5'10.50" Weight 252.00 [...] Color Yellow Urine Appearance Clear Urine Specific [place] 1.010 1.010-1.030 Urine pH 5.0 5-9 Urine [...] and in selective patients <6.0%.Please refer to [place] Diabetes Association Diabetic care guidelines for further information. 14 ADDITIONAL INFORMATION This test was developed and its performance characteristics determined by [facility] in a manner consistent with CLIA requirements. This test has not been cleared or approved by the U.S. Food and Drug Administration. Test Performed by: [facility] [place] [address] Finishing Range Supervisor: Norris Marsh II, M.D., Ph.D. 15 ADDITIONAL INFORMATION This test was developed and its performance characteristics determined by [facility] in a manner consistent with CLIA requirements. This test has not been cleared or approved by the U.S. Food and Drug Administration. Test Performed by: [facility] [place] [address] Finishing Range Supervisor: Norris Marsh II, M.D., Ph.D. 16 Test Result Flag Unit RefValue Histamine, Whole Blood 1226 nmol/L 180-1800 INTERPRETIVE INFORMATION: Histamine, Whole Blood Test developed and characteristics determined by [facility] ([email or web address]). See Compliance Statement D: [employer] Performed by [facility] ([email or web address]), [address] [place] [address] [email or web address], Wing Coy MD - Lab. Director Test Performed by: [facility] ([email or web address]) [address] [place] [address] 17 Adults: Males: 18-36 mg/dL Females: 18-53 [...] J et al Pediatric reference ranges for Grrb-1-Ylelnnygmjaze and ceruloplasmin. Clin. Chem 1997; 43:S1999 Pediatric Reference Ranges, 2nd., SF Sandy,et al. editors. [employer], [place], [place] 1997. Test Performed at: [facility], [address] [place] [address] B Cheri ADLER, FCAP Test Performed by: [facility]/[address] [address] 18 Because ethnic data is not always [...] method is an immunoenzymatic assay manufactured by [employer] and performed on the [employer] DxI 800. Values obtained with different assay methods or kits may be different and cannot be used interchangeably. Test results cannot be interpreted as absolute evidence for the presence or absence of malignant disease. Alpha-Fetoprotein values are not interpretable in females for the investigation of malignant disease. Test Performed by: [address] [address] Finishing Range Supervisor: Norris Marsh II, M.D., Ph.D. 25 Test Performed by: [facility] [address] [place] [address] Finishing Range Supervisor: Norris Marsh II, M.D., Ph.D. 26 Serologic response to B. burgdorferi infection is not detected, but cannot rule out early infection during which low or undetectable antibody levels to B. burgdorferi may be present. If clinically indicated, a new serum specimen should be submitted in 7-14 days. Test Performed by: [facility] [address] [place] [address] Finishing Range Supervisor: Norris Marsh II, M.D., Ph.D. 27 >100 [...] Date CPT Code Description Status Comment 10/17/2017 98777 ECHO Transthorasic Realtime 2D W Completed Doppler & Color Flow Hosp 02/01/2017 46197 Dest Lesion Each Addl Lesion 2 Completed Through 14 Each 02/01/2017 05484 Destruction ALL Benign Or Completed Premalignant Lesion (Other Than [place] 02/03/2016 69887 Polysomnography Sleep Staging 4+ Completed Parameters 02/02/2016 43163 EKG, Interpretation Only Completed 06/24/2013 [facility]oscopy [facility]/04[facility]2013 22814 Nerve Conduction 07-08 Studies Completed Encounters Type Date Location Provider CPT E/M Dx Office Visit 10/30/2017 [facility] [address]609 M47.892 1:00p Of Abhishek Low MD M50.022 Office Visit 10/17/2017 2:46p [facility] Johanne Sanz, [address] R29.898 Assoc, Hospitalists Jose I73.9 E78.5 Office Visit 10/15/2017 11:40a [facility] Internal Medicine Radha Pike [address]505 I67.89 - Effie Garcia Office Visit 04/05/2017 7:40a [facility] Internal Medicine Radha Pike 28294 I71.2 - Effie Garcia D69.6 G47.9 M54.2 Office Visit 02/16/2017 4:00p [facility] Internal Medicine Radha Pike 64151 Z00.00 - Effie Garcia R91.8 E78.5 D69.6 F33.9 Z23 Office Visit 02/01/2017 10:40a [facility] [place] [address] L82.1 D18.01 I83.12 I83.11 L57.0 Office Visit 01/30/2017 4:20p [facility] Internal Medicine Radha Pike [address]85 I73.9 - Effie Garcia R63.5 Office Visit 05/19/2016 1:40p [facility] [place] [address] R04.0 Medicine - [place] Office Visit 05/18/2016 9:00a [facility] [place] [address] L02.224 Medicine - [place] Office Visit 05/11/2016 1:00p [facility] Internal Radha Pike [address]74[address] E78.5 Medicine - Effie Garcia B18.2 K59.00 Office Visit 02/08/2016 1:00p [facility] Internal Medicine Radha Pike 23784 E78.5 - Effie Garcia J44.9 G47.9 Office Visit 01/11/2016 9:50a [facility] Internal Medicine Asmita Shaikh [address]3883 R13.12 - Effie Garcia Z80.8 Office Visit 11/09/2015 8:40a [facility] [place] [address] M70.21 [place] D48.5 M79.671 M79.672 H54.2 M70.22 Office Visit 02/11/2015 8:15a Pulmonology And Sleep Jay Nathan, [address]140 780.53 Services Of [facility] MElva Office Visit 01/06/2015 2:30p [facility] [place] [address] 782.3 [place] 780.59 780.79 Office Visit 03/14/2013 9:00a [place] [facility] Jenifer Matthews, [address] 333.1 Services Of [facility] Jose Plan of Care Future Appointment(s):11/30/2017 9:00 am - Mark Anthony Low MD at [facility]02/25/2018 10:40 am - Radha Pike M.D. at [facility] Internal Medicine - Vufmlrccz01/06/2018 - Mark Anthony Low, MDM47.892 Other spondylosis, cervical vrbrqwO07.022 Cervical disc disorder at C5-C6 level with myelopathyFollow up:RV 1 week postop
--- OUTSIDE RECORDS SUMMARY | 2017-11-22 05:56 | XMS REPORT ---
:1945 External Reference #:[id number] Author Organization [facility] Address [address] [address] Phone [phone] Care Team Providers Name Role Phone Radha Pike MD Primary Care Physician Unavailable Payers Type Date Identification Numbers Payment Subscriber Provider Health Maintenance Effective: Policy Number: Medicare Blue Vern Castellon (O) 09/24/2016 [id number] o Group Number: [id number] [address] [address] PayID: [id number] MIRELLA Sky [id number] Medigap Part B Expires: 10/24/2013 Policy Number: [id number] Medicare Vern Lerner PayID: [id number] [address] [place] [address] Problems Date Description Provider Status Onset: 02/19/2009 [...] Status Single 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 [...] 1 po qd Unknown 0000 - 2016 [place] 00/00/ Hx Capsules 300mg 2 caps by [...] Code Status Date Vaccine Reaction Lot # 43659 Given 02/16/2017 Pneumonia Vaccine no immediate noted. [id number] Given 07/09/2015 Fluvirin Im 3Yrs And Older Q2037 Given 02/11/2015 Fluvirin Im 3Yrs And Older Vital Signs Date Vital Result Comment 10/26/2017 Height 70.5 inches 5'10.50" Weight 252.00 [...] Color Yellow Urine Appearance Clear Urine Specific Victoria 1.010 1.010-1.030 Urine pH 5.0 5-9 Urine [...] developed and its performance characteristics determined by [facility] in a manner consistent with CLIA requirements. This test has not been cleared or approved by the U.S. Food and Drug Administration. Test Performed by: [facility] - [address] [address] Obiee Report Developer: Norris Marsh II, M.D., Ph.D. 15 ADDITIONAL INFORMATION This test was developed and its performance characteristics determined by [facility] in a manner consistent with CLIA requirements. This test has not been cleared or approved by the U.S. Food and Drug Administration. Test Performed by: [facility] - [address] [address] Obiee Report Developer: Norris Marsh II, M.D., Ph.D. 16 Test Result Flag Unit RefValue Histamine, Whole Blood 1226 nmol/L 180-1800 INTERPRETIVE INFORMATION: Histamine, Whole Blood Test developed and characteristics determined by [facility]. See Compliance Statement D: [facility]/CS Performed by [facility], [address] [place] [id number] [email or web address], Wing Coy MD - Lab. Director Test Performed by: [facility] [address] [place] [address] 17 Adults: Males: 18-36 mg/dL Females: 18-53 mg/dL Pediatrics: Males (mg/dL) Females (mg/dL) 0-30 Days 8-25 3-28 31 Days-11 Month 15-48 15-43 1-3 Years 25-56 29-54 4-6 Years 29-56 26-54 7-9 Years 25-52 23-48 10-12 Years 21-51 21-48 13-15 Years 20-50 21-46 16-18 Years 20-45 22-50 The pediatric ranges are derived from the following criteria: Sandy EDDY, Chica GRANT, Mae J et al Pediatric reference ranges for Hbjx-1-Zfnnmcyqgnvep and ceruloplasmin. Clin. Chem 1997; 43:S1999 Pediatric Reference Ranges, 2nd., SF Sandyet al. editors. [employer], [place], [place] 1997. Test Performed at: [facility], [address] [place] [phone] B Cheri ADLER, FCAP Test Performed by: [facility] [place] [address] [place] [address] 18 Because ethnic data is not always [...] method is an immunoenzymatic assay manufactured by [employer] and performed on the Dragonfly DxI 800. Values obtained with different assay methods or kits may be different and cannot be used interchangeably. Test results cannot be interpreted as absolute evidence for the presence or absence of malignant disease. Alpha-Fetoprotein values are not interpretable in females for the investigation of malignant disease. Test Performed by: [facility] [place] [address] Obiee Report Developer: Norris Marsh II, M.D., Ph.D. 25 Test Performed by: [address] [address] Obiee Report Developer: Norris Marsh II, M.D., Ph.D. 26 Serologic response to B. burgdorferi infection is not detected, but cannot rule out early infection during which low or undetectable antibody levels to B. burgdorferi may be present. If clinically indicated, a new serum specimen should be submitted in 7-14 days. Test Performed by: [address] [address] Obiee Report Developer: Norris Marsh II, M.D., Ph.D. 27 >100 [...] Date CPT Code Description Status Comment 10/17/2017 93922 ECHO Transthorasic Realtime 2D W Completed Doppler & Color Flow Hosp 02/01/2017 62295 Dest Lesion Each Addl Lesion 2 Completed Through 14 Each 02/01/2017 07228 Destruction ALL Benign Or Completed Premalignant Lesion (Other Than [place] 02/03/2016 91991 Polysomnography Sleep Staging 4+ Completed Parameters 02/02/2016 47525 EKG, Interpretation Only Completed 06/24/2013 Colonoscopy Completed [facility] 02/04/2013 41739 Nerve Conduction 07-08 Studies Completed Encounters Type Date Location Provider CPT E/M Dx Office Visit 10/17/2017 [facility] Johanne Sanz, [address] R29.898 2:46p [place] Jose I73.9 E78.5 Office Visit 10/15/2017 11:40a [facility] Radha Shahzad, [address] I67.89 - Effie Garcia Office Visit 04/05/2017 7:40a [facility] Radha Pike, [address] I71.2 - Effie Garcia D69.6 G47.9 M54.2 Office Visit 02/16/2017 4:00p [facility] Radha Shahzad [address]1977 Z00.00 - Effie Garcia R91.8 E78.5 D69.6 F33.9 Z23 Office Visit 02/01/2017 10:40a [facility] [place] [address] L82.1 D18.01 I83.12 I83.11 L57.0 Office Visit 01/30/2017 4:20p [facility] Radha Pike [address] I73.9 - Effie Garcia R63.5 Office Visit 05/19/2016 1:40p [facility] [place] [address] R04.0 Medicine - [place] Office Visit 05/18/2016 9:00a [facility] [place] [address] L02.224 Medicine - [place] Office Visit 05/11/2016 1:00p [facility] Internal Radha Pike [address]05 E78.5 Medicine - Effie Garcia B18.2 K59.00 Office Visit 02/08/2016 1:00p [facility] Radha Pike [address] E78.5 - Effie Garcia J44.9 G47.9 Office Visit 01/11/2016 9:50a [facility] Asmita Shaikh [address] R13.12 - Effie Garcia Z80.8 Office Visit 11/09/2015 8:40a [facility] [place] [address] M70.21 [place] D48.5 M79.671 M79.672 H54.2 M70.22 Office Visit 02/11/2015 8:15a Pulmonology And Sleep Jay Nathan, [address] 780.53 Services Of [facility] Garcia Office Visit 01/06/2015 2:30p [facility] [place] [address] 782.3 [place] 780.59 780.79 Office Visit 03/14/2013 9:00a [facility] Jenifer Matthews, [address] 333.1 Services Of [facility] Plan of Care Future Appointment(s):02/25/2018 10:40 am - Radha Pike M.D. at [facility] - Pvclhvjea39/02/2018 - Radha Pike M.D.M47.892 Other spondylosis, cervical xrxqwuT61.00 Constipation, unspecifiedComments:MiraLax ( polyethylene glycol) - mix with water/liquidSenna or Dulcolax
[2017-11-22] MEDS ORDERED: NS 0.9% 1000 ML* 1,000 ML IV SCH (06:00)
[2017-11-22] MEDS ORDERED: ceFAZolin 2 GM in 100 MLS NS (*) BAG IVPB ONE (07:07)
[2017-11-22] MEDS ORDERED: Lidocaine 1% MPF wEPI 200,000* 30 ML SDV ONE (07:14)
[2017-11-22] MEDS ORDERED: Bacitracin IV* 50,000 UNITS INJ ONE (07:15)
[2017-11-22] MEDS ORDERED: Thrombin 5,000 UNITS* 1 APPLIC KIT - topical use - TOPICAL ONE (07:15)
[2017-11-22] MEDS ORDERED: Midazolam* 1 MG/ML 2 ML VIAL (2 MG) ONE (07:19)
[2017-11-22] MEDS ORDERED: Lidocaine 2% PF * 5 ML VIAL ONE (07:43)
[2017-11-22] MEDS ORDERED: Famotidine IV* 10 MG/ML 2 ML (20 mg) ONE (07:50)
[2017-11-22] MEDS ORDERED: Propofol* 10 MG/ML 20 ML BTL IV PUSH ONE (07:50)
[2017-11-22] MEDS ORDERED: Cisatracurium* 2 MG/ML MDV 5 ML ONE (07:50)
[2017-11-22] MEDS ORDERED: Dexamethasone IV* 4 MG/ML 1 ML (4 MG) ONE (07:50)
[2017-11-22] MEDS ORDERED: Ondansetron INJ* 2 MG/ML VIAL ONE (07:50)
[2017-11-22] MEDS ORDERED: Succinylcholine* 20 MG/ML 10 ML VIAL ONE (07:50)
[2017-11-22] MEDS ORDERED: fentaNYL* 50 MCG/ML 2 ML VIAL (100 MCG VIAL) ONE ×3 (08:03→11:27)
[2017-11-22] MEDS ORDERED: Acetaminophen TAB* 325 MG PO PRN ×2 (09:39→16:00)
[2017-11-22] MEDS ORDERED: Naloxone* 0.4 MG/ML 1 ML VIAL IV PRN (09:39)
[2017-11-22] MEDS ORDERED: PROCHLORPERAZINE INJ 5 MG/ML 2 ML VIAL IV PRN (09:39)
[2017-11-22] MEDS ORDERED: Levalbuterol 0.63MG/3ML NEB* UNIT OF USE INH PRN (09:39)
[2017-11-22] MEDS ORDERED: Ondansetron INJ* 2 MG/ML VIAL IV PRN ×2 (09:39→11:40)
[2017-11-22] MEDS ORDERED: DiMENhydriNATE IV* 50 MG/ML VIAL IV PUSH PRN (09:39)
[2017-11-22] MEDS: fentaNYL* 50 MCG/ML 2 ML VIAL (100 MCG VIAL) IV PRN ×2 (11:31→11:43)
--- NOTE | 2017-11-22 11:31 | RAD ---
INDICATION: Cervical discectomy COMPARISON: None FINDINGS: 25.9 seconds of fluoroscopy were provided for the neurosurgical department. Fluoroscopic spot imaging of the neck were obtained for operative control. A final images demonstrate anterior fusion at C5-C6. CPT II Codes: 6045F (fluoro time doc)
[2017-11-22] MEDS ORDERED: Acetaminophen TAB* 325 MG ONE (11:34)
[2017-11-22] MEDS ORDERED: Magnesium Hydroxide LIQ* 30 ML UDC PO PRN (11:40)
[2017-11-22] MEDS ORDERED: Mouth Piece, Nicotine* 1 EACH CARTRIDGE INH PRN ×2 (11:45)
[2017-11-22] MEDS ORDERED: Nicotine Inhaler* 10 MG AMP INH PRN (11:45)
[2017-11-22] MEDS ORDERED: traZODone TAB* 50 MG TAB PO PRN (11:46)
[2017-11-22] MEDS ORDERED: HYDROmorphone INJ* 2 MG/ML CARPUJECT SYRINGE ONE (12:11)
[2017-11-22] MEDS: HYDROmorphone INJ* 1 MG/ML CARPUJECT SYRINGE IV PRN ×5 (12:17→13:18)
[2017-11-22] MEDS: Nicotine PATCH 21 MG/24 HR* PATCH TRANSDERM SCH (13:53)
[2017-11-22] MEDS: Atorvastatin* 10 MG TAB PO SCH (14:18)
[2017-11-22] MEDS: HYDROcodone/ACETAMIN 5-325 MG* 1 TAB PO PRN ×2 (18:00→23:34)
[2017-11-22] MEDS ORDERED: Nicotine Patch Removal NOTE PATCH OFF SCH (21:00)
[2017-11-23] MEDS: HYDROcodone/ACETAMIN 5-325 MG* 1 TAB PO PRN ×3 (03:43→12:34)
[2017-11-23] MEDS: Nicotine PATCH 21 MG/24 HR* PATCH TRANSDERM SCH (08:30)
--- NOTE | 2017-11-23 09:20 | RAD ---
HISTORY: Postop ACD COMPARISONS: August 19, 2010 VIEWS: 4, Frontal, lateral, swimmer's, and open-mouth odontoid views of the cervical spine. FINDINGS: The cervical spine is visualized from the skull base through C7-T1. ALIGNMENT: The alignment is normal. VERTEBRAL BODIES: The patient is status post anterior cervical fusion with a plate and screws at C5 and C6. There is no hardware failure or osteolysis. JOINTS: There is no subluxation or dislocation. The facet joints are unremarkable. INTERVERTEBRAL DISCS: Intervertebral graft material is noted at C5-C6. SOFT TISSUE: There is post surgical change to the soft tissues. OTHER: The skull base is normal. The lung apices are clear. IMPRESSION: STATUS POST ANTERIOR CERVICAL FUSION AT C5-C6
[2017-11-23 12:06] VITALS: BP 114/66
[2017-11-23] MEDS: Atorvastatin* 10 MG TAB PO SCH (12:33)
--- NOTE | 2017-11-23 14:24 | PN ---
Progress Note - Progress Note Date of Service: 11/23/17 SOAP: Subjective: []No events ON. Tolerates PO well, Voids, Ambulates. Patient wants to go home. Objective: []VSS, Afebrile. Wound soft clean, dry. KHOA drain minimal output. DC drain removed, Catheter appeared to be intact. Patient tolerated removal well. AAOx3, LESLEY, CN II- XII grossly intact, baseline strabismus and diplopia. Motor 5/5 all extremities. Sensory grossly intact to light touch. DTR +1 bilaterally. Assessment: []72 yom POD#1 ACDF C5-6 Plan: []C spine XR reveals good placement of hardware, good alignment of spine. Maintain MJ collar. PT/OT display department manager on case for DC planning. Ok to Dc home if cleared by PT, and DC planning completed. Ramandeep Low MD
--- NOTE | 2017-11-24 10:19 | OP ---
OPERATIVE REPORT: DATE OF SURGERY: 11/22/17 DATE OF : 47 SURGEON: Mark Anthony Low MD. CO-SURGEON: Scott Spear MD. ANESTHESIA: General. PRE-OP DIAGNOSES: Degenerative disk disease, cervical myelopathy. POST-OP DIAGNOSES: Degenerative disk disease, cervical myelopathy. OPERATIVE PROCEDURE: The patient underwent anterior cervical diskectomy and fusion at C5-6 with PEEK interbody spacer, autologous local bone graft and DBX and plate. ESTIMATED BLOOD LOSS: 70 cc. COMPLICATIONS: None. SUMMARY: The patient is a very pleasant 72-year-old gentleman that sustained an episode transient paralysis of lower extremities. He was admitted to the hospital in the past and had MRI findings consistent with C5-6 herniated nucleus pulposus, degenerative disk disease, and cord contusion. He was offered the option of surgical intervention in the form of cervical diskectomy and fusion. After explaining the expectations, limitations, possible complications of procedure to the patient and his brother with complications include but not limited to bleeding, infection, risk of injury to the adjacent structures, coma, paralysis, , need for additional procedures, anesthesia risk, stroke, blindness, cancer, instability, hardware failure, adjacent level disease, pseudoarthrosis, vocal cord paralysis, Atul's syndrome, the patient agreed to proceed with surgery. Informed consent was obtained. The patient understood that his condition may not improve and in fact may get worse after the surgery and that the goal of the surgery is to prevent worsening of his condition. He also understood that the operative plan may be modified according to intraoperative findings and condition. The procedure was done by 2 physicians because of the complexity of the case, due to severe calcification of herniated nucleus pulposus. DESCRIPTION OF PROCEDURE: The patient was brought to the operating room, was placed under general anesthesia by the anesthesia team. He was carefully positioned prone on the Lefty table and all bony prominences were meticulously padded. His skin was prepped and draped in the standard fashion. After appropriate surgical pause and patient identification, a right midline incision was marked over the C5-6 area. The skin was infiltrated with local anesthetic and #10 surgical blade was used to incise the skin. The incision was deepened with Bovie cautery and the platysma was gently divided with the use of Bovie cautery and Metzenbaum scissors. The plane between the medial border of sternocleidomastoid and the medial structures were gently then developed with sharp and blunt dissection and the anterior portion of the spine was exposed. After confirmation of appropriate surgical level with intraoperative fluoroscopy, the Shadow-Line self-retaining retractors were introduced in the field and 2 distraction pins were placed. A standard diskectomy was performed after excising the anulus fibrosis with a #15 surgical blade. Diskectomy was carried down with series of pituitary rongeurs, Kerrison punches, curettes, and a high-speed drill. A diskectomy was completed under microscopic magnification and as expected from the preoperative imaging, a large calcified disk fragment was found to indent the thecal sac anteriorly. Meticulous dissection was performed and after developing the plane between the dura and the herniated disk calcified fragment, the diskectomy was completed and thecal sac was free of any pressure phenomenon and pulsating nicely. Meticulous hemostasis was confirmed in the deepest parts of the wound and after copious irrigation, sizing of the disk space was performed and 10 mm height PEEK interbody cage filled with locally harvested bone graft and DBX was inserted. The Kaspar pins were removed and a Zevo Medtronic 25 mm plate was placed and secured in place with 10 mm screws. Intraoperative fluoroscopic imaging confirmed optimal placement of our hardware. The wound then was copiously irrigated and definite confirmation of the meticulous hemostasis, and meticulous inspection of the wound, a #7 KHOA drain was placed. The wound was closed by layers with 2-0 Vicryl sutures to approximate the platysma and subcutaneous tissue in inverted interrupted fashion. The skin was approximated with 4-0 Monocryl in subcuticular fashion and was covered with Steri-Strips and sterile dressing. At the end of the procedure, all counts were reported to be correct. The patient remained hemodynamically stable throughout the case. He was then extubated and transferred to Recovery in excellent condition, moving all extremities well. The case again was done with 2 physicians because of the complexity of the case. [id number]/[facility] #: [id number] [facility]ENT[facility]amon
--- NOTE | 2017-11-26 21:23 | DS ---
DISCHARGE SUMMARY: DATE OF SURGERY: 11/22/17 DATE OF DISCHARGE: 11/23/17 PROCEDURE: The patient underwent anterior cervical diskectomy and fusion at C5- 6. SUMMARY: The patient is a very pleasant 72-year-old gentleman with prior admission after an episode of paralysis of the lower extremities. The patient had a workup revealing MRI of cervical spine with large calcified C5-6 disk herniation with cord compression. He was offered the option of surgical intervention in the form of anterior cervical diskectomy and fusion at C5-6. After explaining expectations, risks, possible complications of the procedure with complication including but not limited to bleeding, infection, risk of damage to adjacent structures, paralysis, need for additional procedures, anesthesia risk, the patient was agreeable to proceed with surgery. Informed consent was obtained. The patient underwent the above procedure. He tolerated the procedure very well and was extubated and was transferred to the floor. On the first postoperative day, he was able to ambulate very well. He was voiding. His neurological exam was normal and his KHOA drain was discontinued and he was felt to be ready to be discharged home. Cervical spine x-ray revealed excellent placement of hardware with good alignment of his cervical spine. The patient was discharged home with pain medication and instruction to return to the office with followup visit in 7 to 10 days. [id number]/[facility] #: [id number] OMAIRA
== END 2017-11-23 14:40 | disposition home health service (06) | DRG 473 ==
LOC: AA 05:49 → SSU 13:35
PROVIDERS: ADMIT Neurological Surgery; ATTEND Neurological Surgery
PROC: 0RB30ZZ Excision of Cervical Vertebral Disc, Open Approach (ICD-10-PCS; 2017-11-22)
PROC: 0RG10AJ Fusion of Cervical Vertebral Joint with Interbody Fusion Device, Posterior Approach, Anterior Column, Open Approach (ICD-10-PCS; principal; 2017-11-22 07:30)
DX: M50.022 Cervical disc disorder at C5-C6 level with myelopathy (principal); G62.9 Polyneuropathy, unspecified; I71.2 Thoracic aortic aneurysm, without rupture; M47.892 Other spondylosis, cervical region; I65.01 Occlusion and stenosis of right vertebral artery; J44.9 Chronic obstructive pulmonary disease, unspecified; B19.20 Unspecified viral hepatitis C without hepatic coma; E78.5 Hyperlipidemia, unspecified; I73.9 Peripheral vascular disease, unspecified; F31.9 Bipolar disorder, unspecified; M25.78 Osteophyte, vertebrae; G47.33 Obstructive sleep apnea (adult) (pediatric); F17.210 Nicotine dependence, cigarettes, uncomplicated; I71.4 Abdominal aortic aneurysm, without rupture; G83.11 Monoplegia of lower limb affecting right dominant side; G83.14 Monoplegia of lower limb affecting left nondominant side; Z95.828 Presence of other vascular implants and grafts; Z88.8 Allergy status to other drugs, medicaments and biological substances
CPT/HCPCS: 72040; 76001; A9270-GY; C1713; C1776; J0330; J1100; J1170; J2001; J2250; J2405; J2704; J3010

== ENCOUNTER 2018-05-21 06:20 | Day surgery (SDC) | payer MEDICARE ==
[~2018-05-21 06:20] MED LIST changes: -Buffered Lidocaine 0.9% SYRIN* 5 ML/SYR SYRINGE ONE; +Dexamethasone IV* 4 MG/ML 1 ML (4 MG) IV SLOW PU ONE; +Dexamethasone IV* 4 MG/ML 1 ML (4 MG) ONE; +Famotidine IV* 10 MG/ML 2 ML (20 mg) IV ONE; +Famotidine IV* 10 MG/ML 2 ML (20 mg) ONE
[2018-05-21] MEDS ORDERED: Lidocaine 2% PF * 5 ML VIAL ONE (07:01)
[2018-05-21] MEDS ORDERED: Mivacurium Chloride* 20 MG/10 ML VIAL IV ONE (07:01)
[2018-05-21] MEDS ORDERED: Propofol* 10 MG/ML 20 ML BTL IV PUSH ONE (07:01)
[2018-05-21] MEDS ORDERED: Midazolam* 1 MG/ML 2 ML VIAL (2 MG) ONE (07:02)
[2018-05-21] MEDS ORDERED: fentaNYL* 50 MCG/ML 2 ML VIAL (100 MCG VIAL) ONE ×2 (07:02→08:11)
[2018-05-21] MEDS ORDERED: Phenylephrine 2.5% OPTH.SOL* 2 ML BTL ONE (07:09)
[2018-05-21] MEDS ORDERED: Tetracaine 0.5% OPTH.SOL 15ML* BTL ONE (07:09)
[2018-05-21] MEDS ORDERED: BSS OPTH.SOL* BTL ONE (07:09)
[2018-05-21] MEDS ORDERED: Neomycin/Polymy/Dex OPHTH.OIN* 3.5 GM ONE (07:10)
[2018-05-21] MEDS ORDERED: Povidone Iodine 5% OPTH* 30 ML BTL ONE (07:16)
[2018-05-21] MEDS ORDERED: oxyCODONE/Acetamin 5/325 MG* TAB PO PRN (07:25)
[2018-05-21] MEDS ORDERED: HYDROcodone/ACETAMIN 5-325 MG* 1 TAB PO PRN (07:25)
[2018-05-21] MEDS ORDERED: fentaNYL* 50 MCG/ML 2 ML VIAL (100 MCG VIAL) IV PRN (07:25)
[2018-05-21] MEDS ORDERED: Naloxone* 0.4 MG/ML 1 ML VIAL IV PRN (07:25)
[2018-05-21] MEDS ORDERED: DiMENhydriNATE IV* 50 MG/ML VIAL IV PUSH PRN (07:25)
[2018-05-21] MEDS ORDERED: Ondansetron INJ* 2 MG/ML VIAL ONE (08:22)
[2018-05-21] MEDS ORDERED: Acetaminophen TAB* 325 MG ONE (09:26)
[2018-05-21 09:35] VITALS: BP 116/68
--- NOTE | 2018-05-21 15:52 | OP ---
DATE OF OPERATION: 05/21/18 LOCATED WITHIN [facility] DATE OF : 47 SURGEON: Camilo Perales MD PRIMER SUPERVISOR: None. ANESTHESIA: General. PRE-OP DIAGNOSIS: Exotropia with Y pattern. POST-OP DIAGNOSIS: Exotropia with Y pattern. OPERATIVE PROCEDURE: Recess each lateral rectus muscle 6 mm with one quarter tendon with superior transposition. COMPLICATIONS: None. BLOOD LOSS: Minimal. DESCRIPTION OF PROCEDURE: The patient was brought to the operating room and received general anesthesia. A drop of tetracaine and a drop of phenylephrine were placed in each eye. The patient was prepped and draped in the usual sterile fashion for ophthalmic surgery and attention was directed to the left eye where a speculum was placed. Forced ductions were performed and found to be normal. The eye was grasped in the inferotemporal quadrant at the limbus and brought to superonasal gaze. Inferotemporal fornix incision was created with Silvia scissors. Tenons capsule was violated and the lateral rectus muscle was isolated on a Orlando muscle hook. The conjunctiva was reflected over the surface of the muscle and the check ligament was opened. The muscle was cleaned with sharp and blunt dissection. A double-arm 6-0 Vicryl suture was woven to the muscle near its insertion and locked at either end. The muscle was disinserted from the globe. The muscle was inspected and found to fully intact on the sutures. The original insertion site was grasped with interrupted locking forceps. A mu was made with caliper 6.0 mm posterior to the original insertion and one quarter tenuous superiorly transposed. The muscle was recessed to this position and tied securely. The locking forceps were removed and gentle cauterization at the site, achieved hemostasis. The conjunctiva was closed with interrupted 6-0 gut sutures. The speculum was removed and placed in the contralateral eye where the exact same procedure was performed. At the end of the case, the eyes appeared straight and there was no active bleeding. Speculum was removed. Topical tetracaine followed by Maxitrol ointment was placed in each eye. The patient was awakened uneventfully and sent to recovery room in stable condition with postoperative instructions and followup appointment given. [id number]/[facility] #: [id number] [facility] NETWORKRamon
== END 2018-05-21 10:01 | disposition home or self-care (01) ==
LOC: OREAST 06:20
PROVIDERS: ATTEND Ophthalmology
DX: H50.18 Alternating exotropia with other noncomitancies (principal); Z72.0 Tobacco use; E78.5 Hyperlipidemia, unspecified; B19.20 Unspecified viral hepatitis C without hepatic coma; D69.6 Thrombocytopenia, unspecified; G47.33 Obstructive sleep apnea (adult) (pediatric); I73.9 Peripheral vascular disease, unspecified; I71.4 Abdominal aortic aneurysm, without rupture
CPT/HCPCS: A9270-GY; J1100; J2250; J2405; J2704; J3010

== ENCOUNTER 2019-04-21 14:36 | Emergency (ER) | payer MEDICARE ==
[2019-04-21 15:09] LABS: ABS Basophils 0.1 10^3/ul (0-0.2); ABS Eosinophils 0.1 10^3/ul (0-0.6); ABS Lymphocytes 2.5 10^3/ul (1.0-4.8); ABS Monocytes 0.6 10^3/ul (0-0.8); ABS Neutrophils 3.9 10^3/ul (1.5-7.7); Eosinophil % 1.8 %; Hematocrit 43 % (42-52); Hemoglobin 14.7 g/dL (14.0-18.0); Lymphocyte % 34.7 %; Mean Corpuscular HGB Conc 35 g/dL (31-36); Mean Corpuscular Hemoglobin 30 pg (27-31); Mean Corpuscular Volume 87 fL (80-94); Nucleated Red Blood Cells % 0.1; Platelet Count 142 10^3/uL (150-450); Red Blood Count 4.91 10^6 /uL (4.18-5.48); Red Cell Distribution Width 14 % (10-15); White Blood Count 7.3 10^3/uL (3.5-10.8)
[2019-04-21 15:24] LABS: Albumin 4.1 g/dL (3.2-5.2); Albumin/Globulin Ratio 1.2 (1-3); BUN/Creatinine Ratio 15.8 (8-20); C Reactive Protein 2.08 mg/L (<8.01); Calcium 9.7 mg/dL (8.6-10.3); EGFR African American 94.3 (>60); EGFR Non-African American 77.9 (>60); Globulin 3.3 g/dL (2-4); Total Bilirubin 0.7 mg/dL (0.2-1.0); Total Protein 7.4 g/dL (6.4-8.9)
[2019-04-21 15:39] LABS: INR 1.05 (0.82-1.09)
[2019-04-21 15:59] LABS: TSH (Thyroid Stimulating Horm) 1.16 mcIU/mL (0.34-5.60)
[2019-04-21] MEDS ORDERED: NS 0.9% 1000 ML** 1,000 ML IV ONE (16:06)
--- NOTE | 2019-04-21 17:54 | ED ---
Syncope/Near Syncope - HPI Summary HPI Summary: Patient complains of 2 episodes today of vision change, lightheadedness, nausea with position change from sitting to standing. Each episode lasted about 10 minutes. Symptoms are totally resolved EXHAUST AND MUFFLER FITTER. Patient denies prior history of same. Denies fever, room spinning, vomiting, LAGUERRE, unilateral weakness, speech change, facial change, focal deficits, CP, SOB, cough, sore throat, V/V abdominal pain, change in urine, change in BM. Positive smoker. Occasional EtOH. - History Of Current Complaint Chief Complaint: EDDizziness Time Seen by Provider: 04/21/19 14:46 Hx Obtained From: Patient Onset/Duration: Sudden Onset Timing: Minutes Context: Unwitnessed Activity At Onset: Other Associated Head Trauma: No Aggravating Factor(s): Position Change Alleviating Factor(s): Spontaneous Resolution Associated Signs And Symptoms: Lightheadedness - Allergies/Home Medications Allergies/Adverse Reactions: Allergies Allergy/AdvReac Type Severity Reaction Status Date / Time lamotrigine Allergy Severe See Comment Verified 05/21/18 06:33 Home Medications: Home Medications Multivitamins/Minerals TAB* [Theragran/minerals TAB*] 1 tab PO DAILY 04/21/19 [ History Confirmed 04/21/19] traZODone TAB* [Desyrel TAB*] 50 mg PO BEDTIME 04/21/19 [History Confirmed 04/21] PMH/Surg Hx/FS Hx/Imm Hx Endocrine/Hematology History: Denies: Hx Diabetes, Hx Systemic Lupus Erythematosus Cardiovascular History: Reports: Hx Aneurysm, Hx Coronary Artery Disease - minor leakage of heart valve, Hx Peripheral Vascular Disease, Hx Valvular Heart Disease - aortic and iliac stents placed to repair aneurysm, Other Cardiovascular Problems/Disorders - venous bypass Denies: Hx Congestive Heart Failure, Hx Hypertension, Hx Pacemaker/ICD Respiratory History: Reports: Hx Sleep Apnea - was told by primary- no tests Denies: Hx Asthma, Hx Chronic Obstructive Pulmonary Disease (COPD), Hx Pneumonia GI History: Reports: Other GI Disorders - minor constipation- takes dulcolax History: Denies: Hx Dialysis, Hx Renal Disease Musculoskeletal History: Reports: Hx Tendonitis - knees and elbow - resolved Denies: Hx Rheumatoid Arthritis Sensory History: Reports: Hx Contacts or Glasses Denies: Hx Hearing Aid Opthamlomology History: Reports: Hx Contacts or Glasses Neurological History: Reports: Other Neuro Impairments/Disorders Psychiatric History: Reports: Hx Anxiety, Hx Depression, Other Psychiatric Issues/Disorders - manic depression Denies: Hx Panic Disorder - Cancer History Cancer Type, 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 ARTERIAL BYPASS-LEFT KNEE 2001-, AORTA AND BOTH ILLIAC ARTERIES WITH STENTING ( EXCLUDER PXT 380750 AND EXCLUDER PXC 63327 SAFE ONLY 1.5T) 2005, CATHERIZATION IN LEFT HIP 2005,DENTAL SURGERIES,. REMOVAL OF CYSTS NECK BASE OF SPINE 1970 Hx Anesthesia Reactions: No Infectious Disease History: No Infectious Disease History: Reports: Hx Hepatitis - Hep C- treated with Harvoni -resolved, Hx of Known/Suspected MRSA - suspected - in testing Denies: History Other Infectious Disease, Traveled Outside the in Last 30 Days - Family History Known Family History: Positive: Hypertension - Social History Alcohol Use: None Alcohol Amount: 5 per year Substance Use Type: Reports: None Hx Tobacco Use: Yes Smoking Status (MU): Current Every Day Smoker Type: Cigarettes Amount Used/How Often: 3-5 cigarettes a day, smoked for 60 years Review of Systems Constitutional: Negative Positive: Blurred Vision ENT: Negative Cardiovascular: Negative Respiratory: Negative Positive: Nausea Genitourinary: Negative Musculoskeletal: Negative Skin: Negative Neurological: Negative Psychological: Normal All Other Systems Reviewed And Are Negative: Yes Physical Exam - Summary Physical Exam Summary: Neuro exam normal. Abdomen soft nontender. Lung sounds clear to auscultation bilaterally. Regular rate and rhythm. Triage Information Reviewed: Yes Vital Signs On Initial Exam: Initial Vitals Temp Pulse Resp BP Pulse Ox 98.0 F 79 18 127/85 97 04/21/19 14:42 04/21/19 14:42 04/21/19 14:42 04/21/19 14:42 04/21/19 14:42 Vital Signs Reviewed: Yes Appearance: Positive: Well-Appearing Skin: Positive: Warm Head/Face: Positive: Normal Head/Face Inspection Eyes: Positive: Normal Neck: Positive: Supple Respiratory/Lung Sounds: Positive: Clear to Auscultation Cardiovascular: Positive: Normal Abdomen Description: Positive: Nontender Musculoskeletal: Positive: Normal Neurological: Positive: Normal Psychiatric: Positive: Normal AVPU Assessment: Alert - Ambler Coma Scale Best Eye Response: 4 - Spontaneous Best Motor Response: 6 - Obeys Commands Best Verbal Response: 5 - Oriented Coma Scale Total: 15 Diagnostics - Vital Signs Vital Signs Temp Pulse Resp BP Pulse Ox 04/21/19 17:13 73 12 118/73 96 04/21/19 17:00 78 17 95 04/21/19 16:43 73 16 112/77 93 04/21/19 16:26 87 97/74 04/21/19 16:19 77 11 97/74 96 04/21/19 16:16 80 15 108/69 95 04/21/19 16:12 70 18 107/74 93 04/21/19 16:00 77 12 92 04/21/19 15:43 75 13 115/76 94 04/21/19 15:13 82 13 117/100 93 04/21/19 15:00 85 19 96 04/21/19 14:57 83 19 123/73 96 04/21/19 14:53 82 17 95 04/21/19 14:43 82 14 127/85 93 04/21/19 14:42 98.0 F 79 18 127/85 97 - Laboratory Lab Results: Lab Results 04/21/19 04/21/19 04/21/19 Range/Units 14:57 14:57 14:57 WBC 7.3 (3.5-10.8) 10^3/uL RBC 4.91 (4.18-5.48) 10^6 /uL Hgb 14.7 (14.0-18.0) g/dL Hct 43 (42-52) % MCV 87 (80-94) fL MCH 30 (27-31) pg MCHC 35 (31-36) g/dL RDW 14 (10-15) % Plt Count 142 L (150-450) 10^3/uL MPV 9.0 (7.4-10.4) fL Neut % (Auto) 53.4 % Lymph % (Auto) 34.7 % Fannin % (Auto) 8.8 % Eos % (Auto) 1.8 % Baso % (Auto) 1.3 % Absolute Neuts (auto) 3.9 (1.5-7.7) 10^3/ul Absolute Lymphs (auto) 2.5 (1.0-4.8) 10^3/ul Absolute Monos (auto) 0.6 (0-0.8) 10^3/ul Absolute Eos (auto) 0.1 (0-0.6) 10^3/ul Absolute Basos (auto) 0.1 (0-0.2) 10^3/ul Absolute Nucleated RBC 0.0 10^3/ul Nucleated RBC % 0.1 INR (Anticoag Therapy) 1.05 (0.82-1.09) Sodium 136 (135-145) mmol/L Potassium 4.0 (3.5-5.0) mmol/L Chloride 105 (101-111) mmol/L Carbon Dioxide 26 (22-32) mmol/L Anion Gap 5 (2-11) mmol/L BUN 15 (6-24) mg/dL Creatinine 0.95 (0.67-1.17) mg/dL Est GFR ( Amer) 94.3 (>60) Est GFR (Non-Af Amer) 77.9 (>60) BUN/Creatinine Ratio 15.8 (8-20) Glucose 128 H (70-100) mg/dL Calcium 9.7 (8.6-10.3) mg/dL Total Bilirubin 0.70 (0.2-1.0) mg/dL AST 17 (13-39) U/L ALT 17 (7-52) U/L Alkaline Phosphatase 58 (34-104) U/L Troponin I 0.00 (<0.04) ng/mL C-Reactive Protein 2.08 (<8.01) mg/L Total Protein 7.4 (6.4-8.9) g/dL Albumin 4.1 (3.2-5.2) g/dL Globulin 3.3 (2-4) g/dL Albumin/Globulin Ratio 1.2 (1-3) TSH 1.16 (0.34-5.60) mcIU/mL Result Diagrams: 04/21/19 14:57 04/21/19 14:57 Lab Statement: Any lab studies that have been ordered have been reviewed, and results considered in the medical decision making process. Course/Dx Course Of Treatment: Patient complains of 2 episodes today of vision change, lightheadedness, nausea with position change from sitting to standing. Each episode lasted about 10 minutes. Symptoms are totally resolved EXHAUST AND MUFFLER FITTER. Patient denies prior history of same. Denies fever, room spinning, vomiting, LAGUERRE, unilateral weakness, speech change, facial change, focal deficits, CP, SOB, cough, sore throat, V/V abdominal pain, change in urine, change in BM. Positive smoker. Occasional EtOH. Vital signs within normal limits. Labs unremarkable. CT brain unremarkable. EKG sinus rhythm, unchanged from prior. After 1 L normal saline patient was asked to rise from the bed and ambulate. Patient was able to accomplish both without any symptoms. Patient has history of neck surgery 1 year ago, advised to follow-up with neurosurgeon Dr. Farrell and cardiology for further evaluation. Patient understands and approves of plan. - Diagnoses Provider Diagnoses: Orthostatic lightheadedness Discharge - Sign-Out/Discharge Documenting (check all that apply): Patient Departure Patient Received Moderate/Deep Sedation with Procedure: No - Discharge Plan Condition: Stable Disposition: HOME Patient Education Materials: Dehydration (ED), Lightheadedness (ED) Referrals: Radha Pike MD [Primary Care Provider] - Additional Instructions: Follow-up with your neurosurgeon Dr. Massey and neurosurgeon Dr. Craven for further evaluation. Drink plenty of fluids to maintain hydration. Return to the ED for any new or worsening symptoms. - Billing Disposition and Condition Condition: STABLE Disposition: Home
[2019-04-21 18:24] VITALS: BP 116/65
== END 2019-04-21 18:23 | disposition home or self-care (01) ==
LOC: ED 14:36
DX: R42 Dizziness and giddiness (principal); I25.10 Atherosclerotic heart disease of native coronary artery without angina pectoris; F17.210 Nicotine dependence, cigarettes, uncomplicated; Z88.8 Allergy status to other drugs, medicaments and biological substances; Z79.899 Other long term (current) drug therapy
CPT/HCPCS: 36415; 70450; 80053; 84443; 84484; 85025; 85610; 86140; 93005; 96360; 99284

== ENCOUNTER 2023-06-17 04:41 | Inpatient (IN) ==
[2023-06-17] MEDS ORDERED: Vancomycin 1,500 MG in NS 0.9% 250 ml 250 ML IVPB ONE (05:43)
[2023-06-17] MEDS ORDERED: cefTRIAXone 1 gm/50 mL D5W 1 GM/50 ML BAG IV ONE (05:43)
[2023-06-17 06:01] LABS: ABS Basophils 0.1 10^3/uL (0.0-0.1); ABS Lymphocytes 1.6 10^3/uL (1.0-4.8); ABS Monocytes 0.7 10^3/uL (0.0-1.1); ABS Neutrophils 9.4 10^3/uL (1.5-7.6); Eosinophil % 0.1 %; Hematocrit 29.7 % (38-53); Hemoglobin 9.9 g/dL (13.2-16.3); Lymphocyte % 13.7 %; Mean Corpuscular Hemoglobin 28.4 pg (27-33); Mean Corpuscular Hgb Conc 33.4 g/dL (31-36); Mean Corpuscular Volume 84.8 fL (80-97); Mean Platelet Volume 9.7 fL (7.5-11.2); Platelet Count 167 10^3/uL (150-450); Red Cell Distribution Width 17.6 % (12-17); White Blood Count 11.8 10^3/uL (3.6-10.2)
[2023-06-17] MEDS ORDERED: Lactated Ringers 1000 ml BAG 1,000 ML IV ONE (06:06)
[2023-06-17 06:18] LABS: Albumin 3.7 g/dL (3.2-5.2); Albumin/Globulin Ratio 1.1 (1-3); C Reactive Protein 16.23 mg/L (<8.01); Calcium 8.9 mg/dL (8.6-10.3); Creatinine, Serum 0.91 mg/dL (0.67-1.17); Globulin 3.3 g/dL (2-4); Potassium 4.6 mmol/L (3.5-5.0); Total Bilirubin 0.6 mg/dL (0.2-1.0); eGFR CKD-EPI 87.3 (>60)
[2023-06-17 07:36] LABS: Urine Appearance Clear; Urine Bilirubin Negative (Negative); Urine Blood Negative (Negative); Urine Color Yellow; Urine Glucose Negative (Negative); Urine Ketones 1+ (Negative); Urine Nitrite Negative (Negative); Urine Protein Negative (Negative); Urine Specific Gravity 1.024 (1.002-1.030); Urine Urobilinogen Negative (Negative)
[2023-06-17] MEDS ORDERED: ceFAZolin 2 GM in NS PREMIX 2 GM/100 ML BAG IVPB SCH (08:00)
[2023-06-17] MEDS: Enoxaparin 40 MG/0.4 ML SYR SUBCUT SCH (10:07)
[2023-06-17] MEDS: Multivitamins/Mins AREDS2 (NF) CAP PO SCH (10:27)
[2023-06-17] MEDS: Multivitamins/Minerals TAB PO SCH (10:28)
[2023-06-17] MEDS: ceFAZolin 2 GM PREMIX 2 GM/50 ML BAG IV SCH ×2 (10:30→16:02)
[2023-06-18] MEDS: Multivitamins/Mins AREDS2 (NF) CAP PO SCH ×3 (00:40→19:57)
[2023-06-18] MEDS: ceFAZolin 2 GM PREMIX 2 GM/50 ML BAG IV SCH ×3 (01:14→16:04)
[2023-06-18 06:15] LABS: ABS Basophils 0.1 10^3/uL (0.0-0.1); ABS Eosinophils 0.2 10^3/uL (0.0-0.5); ABS Lymphocytes 1.7 10^3/uL (1.0-4.8); ABS Monocytes 0.7 10^3/uL (0.0-1.1); ABS Neutrophils 4.6 10^3/uL (1.5-7.6); ABS Nucleated RBC 0.01 10^3/ul; Eosinophil % 2.7 %; Hematocrit 26.3 % (38-53); Lymphocyte % 23.6 %; Mean Corpuscular Hemoglobin 28.6 pg (27-33); Mean Corpuscular Hgb Conc 34.2 g/dL (31-36); Mean Corpuscular Volume 83.4 fL (80-97); Mean Platelet Volume 8.6 fL (7.5-11.2); Nucleated Red Blood Cells % 0.1 /100 WBC (0.0-0.4); Platelet Count 135 10^3/uL (150-450); Red Blood Count 3.15 10^6/uL (4.06-5.63); Red Cell Distribution Width 17.1 % (12-17); White Blood Count 7.3 10^3/uL (3.6-10.2)
[2023-06-18 06:39] LABS: Calcium 8.5 mg/dL (8.6-10.3); Creatinine, Serum 0.85 mg/dL (0.67-1.17); Potassium 3.9 mmol/L (3.5-5.0); eGFR CKD-EPI 90.1 (>60)
[2023-06-18] MEDS: Enoxaparin 40 MG/0.4 ML SYR SUBCUT SCH (08:54)
[2023-06-18] MEDS: Multivitamins/Minerals TAB PO SCH (08:54)
[2023-06-18 17:17] LABS: Ferritin 51.2 ng/mL (24-336)
[2023-06-19 08:03] LABS: ABS Eosinophils 0.2 10^3/uL (0.0-0.5); ABS Lymphocytes 1.5 10^3/uL (1.0-4.8); ABS Monocytes 0.6 10^3/uL (0.0-1.1); ABS Neutrophils 4.7 10^3/uL (1.5-7.6); ABS Nucleated RBC 0.02 10^3/ul; Eosinophil % 3.4 %; Hematocrit 25.4 % (38-53); Hemoglobin 8.7 g/dL (13.2-16.3); Lymphocyte % 21.2 %; Mean Corpuscular Hemoglobin 28.8 pg (27-33); Mean Corpuscular Hgb Conc 34.4 g/dL (31-36); Mean Corpuscular Volume 83.8 fL (80-97); Mean Platelet Volume 8.8 fL (7.5-11.2); Nucleated Red Blood Cells % 0.2 /100 WBC (0.0-0.4); Platelet Count 144 10^3/uL (150-450); Red Blood Count 3.03 10^6/uL (4.06-5.63); Red Cell Distribution Width 17.2 % (12-17)
[2023-06-19 08:25] LABS: Calcium 8.5 mg/dL (8.6-10.3); Creatinine, Serum 0.85 mg/dL (0.67-1.17); Magnesium 2.1 mg/dL (1.9-2.7); eGFR CKD-EPI 90.1 (>60)
[2023-06-19] MEDS: Multivitamins/Minerals TAB PO SCH (09:16)
[2023-06-19] MEDS: Lactulose 30 ml UDC PO SCH ×3 (09:17→23:09)
[2023-06-19] MEDS: Multivitamins/Mins AREDS2 (NF) CAP PO SCH ×2 (09:17→23:09)
[2023-06-19] MEDS: Senna TAB 8.6 mg TAB PO PRN (09:17)
[2023-06-19] MEDS: Enoxaparin 40 MG/0.4 ML SYR SUBCUT SCH (09:18)
[2023-06-19] MEDS ORDERED: NS 0.9% 500 ml BAG 500 ML IV ONE (12:43)
[2023-06-19 16:25] LABS: Hematocrit for Retic CNT 25.4 % (38-53); RBC Retic Count 3.03 10^6/ul (4.06-5.63)
[2023-06-19 16:34] LABS: Corrected Retic Count 1.1 % (0.5-2.2)
[2023-06-19 16:36] LABS: Immature Retic Fraction 0.53
[2023-06-19 17:16] LABS: Folate 4.41 ng/mL (5.90-24.80)
[2023-06-19] MEDS ORDERED: Cyanocobalamin INJ 1,000 MCG/ML VIAL 1 ML VIAL IM ONE (17:42)
[2023-06-19] MEDS ORDERED: Cyanocobalamin INJ 1,000 MCG/ML VIAL 1 ML VIAL IM SCH (18:00)
[2023-06-20 08:20] LABS: ABS Eosinophils 0.3 10^3/uL (0.0-0.5); ABS Lymphocytes 1.1 10^3/uL (1.0-4.8); ABS Monocytes 0.7 10^3/uL (0.0-1.1); ABS Neutrophils 4.5 10^3/uL (1.5-7.6); ABS Nucleated RBC 0.01 10^3/ul; Eosinophil % 4.6 %; Hematocrit 24.3 % (38-53); Hemoglobin 8.5 g/dL (13.2-16.3); Lymphocyte % 16.6 %; Mean Corpuscular Hemoglobin 29.1 pg (27-33); Mean Corpuscular Hgb Conc 34.8 g/dL (31-36); Mean Corpuscular Volume 83.5 fL (80-97); Mean Platelet Volume 8.5 fL (7.5-11.2); Nucleated Red Blood Cells % 0.1 /100 WBC (0.0-0.4); Platelet Count 152 10^3/uL (150-450); Red Blood Count 2.91 10^6/uL (4.06-5.63); Red Cell Distribution Width 17.5 % (12-17); White Blood Count 6.6 10^3/uL (3.6-10.2)
[2023-06-20] MEDS: Enoxaparin 40 MG/0.4 ML SYR SUBCUT SCH (08:25)
[2023-06-20] MEDS: Lactulose 30 ml UDC PO SCH ×3 (08:25→20:20)
[2023-06-20] MEDS: Multivitamins/Minerals TAB PO SCH (08:27)
[2023-06-20] MEDS: Senna TAB 8.6 mg TAB PO PRN ×2 (08:28→20:21)
[2023-06-20] MEDS: Multivitamins/Mins AREDS2 (NF) CAP PO SCH ×2 (08:52→20:28)
[2023-06-20] MEDS: Iron Sucrose 200 MG in NS 0.9% 100 ml BAG 100 ML IVPB SCH (12:31)
[2023-06-21] MEDS ORDERED: Magnesium Hydroxide LIQ 30 ML UDC PO PRN (04:30)
[2023-06-21 05:32] LABS: Urine Appearance Clear; Urine Bilirubin Negative (Negative); Urine Blood 1+ (Negative); Urine Color Yellow; Urine Glucose Negative (Negative); Urine Ketones Negative (Negative); Urine Nitrite Negative (Negative); Urine Protein Negative (Negative); Urine Specific Gravity 1.014 (1.002-1.030); Urine Urobilinogen Negative (Negative)
[2023-06-21 05:35] LABS: Urine Bacteria 1+ (Absent); Urine Red Blood Cell 1+(3-5/hpf) (Absent); Urine White Blood Cell Trace(0-5/hpf) (Absent)
[2023-06-21 06:23] LABS: ABS Basophils 0.1 10^3/uL (0.0-0.1); ABS Eosinophils 0.3 10^3/uL (0.0-0.5); ABS Lymphocytes 1.4 10^3/uL (1.0-4.8); ABS Monocytes 0.7 10^3/uL (0.0-1.1); ABS Neutrophils 3.9 10^3/uL (1.5-7.6); Eosinophil % 5.4 %; Hematocrit 24.3 % (38-53); Hemoglobin 8.4 g/dL (13.2-16.3); Lymphocyte % 21.7 %; Mean Corpuscular Hemoglobin 28.9 pg (27-33); Mean Corpuscular Hgb Conc 34.4 g/dL (31-36); Mean Platelet Volume 8.5 fL (7.5-11.2); Platelet Count 167 10^3/uL (150-450); Red Blood Count 2.89 10^6/uL (4.06-5.63); Red Cell Distribution Width 17.5 % (12-17); White Blood Count 6.3 10^3/uL (3.6-10.2)
[2023-06-21 06:48] LABS: Calcium 8.5 mg/dL (8.6-10.3); Creatinine, Serum 0.82 mg/dL (0.67-1.17); Potassium 3.8 mmol/L (3.5-5.0)
[2023-06-21] MEDS: Enoxaparin 40 MG/0.4 ML SYR SUBCUT SCH (08:28)
[2023-06-21] MEDS: Lactulose 30 ml UDC PO SCH ×3 (08:30→21:48)
[2023-06-21] MEDS: Multivitamins/Mins AREDS2 (NF) CAP PO SCH ×2 (08:31→21:49)
[2023-06-21] MEDS: Multivitamins/Minerals TAB PO SCH (08:31)
[2023-06-21] MEDS: Iron Sucrose 200 MG in NS 0.9% 100 ml BAG 100 ML IVPB SCH (08:44)
[2023-06-21] MEDS ORDERED: PEG 3000 GI LAVAGE 1 GALLON PO ONE (15:25)
[2023-06-22 06:58] LABS: ABS Eosinophils 0.3 10^3/uL (0.0-0.5); ABS Lymphocytes 1.4 10^3/uL (1.0-4.8); ABS Monocytes 0.6 10^3/uL (0.0-1.1); ABS Neutrophils 4.1 10^3/uL (1.5-7.6); Eosinophil % 4.3 %; Hemoglobin 8.4 g/dL (13.2-16.3); Lymphocyte % 21.4 %; Mean Corpuscular Volume 85.6 fL (80-97); Nucleated Red Blood Cells % 0.1 /100 WBC (0.0-0.4); Platelet Count 176 10^3/uL (150-450); Red Blood Count 2.81 10^6/uL (4.06-5.63); Red Cell Distribution Width 17.7 % (12-17); White Blood Count 6.4 10^3/uL (3.6-10.2)
[2023-06-22 07:01] LABS: Calcium 8.5 mg/dL (8.6-10.3); Creatinine, Serum 0.81 mg/dL (0.67-1.17); Magnesium 2.1 mg/dL (1.9-2.7); Potassium 3.6 mmol/L (3.5-5.0); eGFR CKD-EPI 91.4 (>60)
[2023-06-22] MEDS: Enoxaparin 40 MG/0.4 ML SYR SUBCUT SCH (07:34)
[2023-06-22] MEDS: Lactulose 30 ml UDC PO SCH ×2 (07:35→14:32)
[2023-06-22] MEDS: Multivitamins/Minerals TAB PO SCH (07:35)
[2023-06-22] MEDS: Multivitamins/Mins AREDS2 (NF) CAP PO SCH (07:35)
[2023-06-22] MEDS: Iron Sucrose 200 MG in NS 0.9% 100 ml BAG 100 ML IVPB SCH (08:31)
[2023-06-22 09:00] LABS: Rapid COVID-19 Molecular Undetected (Undetected)
[2023-06-23 06:52] LABS: ABS Basophils 0.1 10^3/uL (0.0-0.1); ABS Eosinophils 0.2 10^3/uL (0.0-0.5); ABS Lymphocytes 1.5 10^3/uL (1.0-4.8); ABS Monocytes 0.7 10^3/uL (0.0-1.1); ABS Neutrophils 4.4 10^3/uL (1.5-7.6); ABS Nucleated RBC 0.01 10^3/ul; Eosinophil % 3.3 %; Hematocrit 25.3 % (38-53); Hemoglobin 8.8 g/dL (13.2-16.3); Lymphocyte % 21.8 %; Mean Corpuscular Hemoglobin 29.6 pg (27-33); Mean Corpuscular Hgb Conc 34.7 g/dL (31-36); Mean Corpuscular Volume 85.2 fL (80-97); Mean Platelet Volume 8.3 fL (7.5-11.2); Nucleated Red Blood Cells % 0.1 /100 WBC (0.0-0.4); Platelet Count 191 10^3/uL (150-450); Red Blood Count 2.96 10^6/uL (4.06-5.63); White Blood Count 6.9 10^3/uL (3.6-10.2)
[2023-06-23 07:07] LABS: Calcium 8.5 mg/dL (8.6-10.3); Creatinine, Serum 0.89 mg/dL (0.67-1.17); Magnesium 2.1 mg/dL (1.9-2.7); Potassium 3.7 mmol/L (3.5-5.0); eGFR CKD-EPI 88.8 (>60)
[2023-06-23] MEDS: Enoxaparin 40 MG/0.4 ML SYR SUBCUT SCH (11:21)
[2023-06-23] MEDS: Iron Sucrose 200 MG in NS 0.9% 100 ml BAG 100 ML IVPB SCH (11:22)
[2023-06-23] MEDS: Multivitamins/Minerals TAB PO SCH (11:25)
[2023-06-24 06:51] LABS: ABS Eosinophils 0.3 10^3/uL (0.0-0.5); ABS Lymphocytes 1.3 10^3/uL (1.0-4.8); ABS Monocytes 0.7 10^3/uL (0.0-1.1); ABS Neutrophils 4.1 10^3/uL (1.5-7.6); ABS Nucleated RBC 0.02 10^3/ul; Eosinophil % 4.5 %; Hemoglobin 9.1 g/dL (13.2-16.3); Lymphocyte % 19.9 %; Mean Corpuscular Volume 85.8 fL (80-97); Mean Platelet Volume 8.2 fL (7.5-11.2); Nucleated Red Blood Cells % 0.2 /100 WBC (0.0-0.4); Platelet Count 210 10^3/uL (150-450); Red Blood Count 3.04 10^6/uL (4.06-5.63); Red Cell Distribution Width 18.2 % (12-17); White Blood Count 6.5 10^3/uL (3.6-10.2)
[2023-06-24] MEDS: Iron Sucrose 200 MG in NS 0.9% 100 ml BAG 100 ML IVPB SCH (08:09)
[2023-06-24] MEDS: Multivitamins/Minerals TAB PO SCH (08:12)
[2023-06-24] MEDS: Enoxaparin 40 MG/0.4 ML SYR SUBCUT SCH (08:12)
[2023-06-25 05:33] VITALS: BP 106/70
[2023-06-25] MEDS: Enoxaparin 40 MG/0.4 ML SYR SUBCUT SCH (08:00)
[2023-06-25] MEDS: Multivitamins/Minerals TAB PO SCH (08:00)
== END 2023-06-25 09:44 | DRG 603 ==
LOC: ED 04:41 → EDHOLD 04:41 → SUATTDRO 07:28 → MED 17:48 → SUATTDRO 06-19 16:00
PROVIDERS: ADMIT Student in an Organized Health Care Education/Training Program; ATTEND Student in an Organized Health Care Education/Training Program
PROC: O.GIEGD (2023-06-21 15:15)